=== PATIENT | male | born 1945 | race Caucasian/White ===

== ENCOUNTER 2020-02-16 17:46 | Emergency (ER) | payer MEDICARE ==
--- NOTE | 2020-02-16 18:13 | ED ---
Psychiatric Complaint - HPI Summary HPI Summary: 74 year old M presenting to [facility] accompanied by the police with a chief complaint of concern for COVID-19 since earlier today. The patient rates the pain 0/10 in severity. Symptoms aggravated by nothing. Symptoms alleviated by nothing. Patient reports trying to play "cowboys and Indians" and trying to form an underground army to "fight the war against COVID-19" and that he thinks that he knows more about COVID-19 than others. Per the officer with him the patient is a [place] vet and two days ago was lapsing between being in [place] and being in present-time. The officer denies the patient having suicidal thoughts. The patient reports allergies but there are none listed in his chart. Medication list reviewed. Allergy list reviewed. Home Medications Medication Instructions Recorded Confirmed Type ALPRAZolam TAB* [Xanax TAB*] 0.25 mg PO TID PRN 05/02/14 10/15/15 History Aspirin 81 mg CHEW TAB* [Aspirin 81 mg PO DAILY 05/02/14 10/15/15 History Low Dose TAB*] Atenolol TAB* [Tenormin TAB*] 25 mg PO DAILY 05/02/14 10/15/15 History Cyclobenzaprine TAB* [Flexeril 5 mg PO TID PRN 09/20/14 10/15/15 History TAB*] Misc Natural Products [Saw 1 cap PO DAILY 09/20/14 10/15/15 History [place]] Multiple Vitamins W/ Minerals 1,000 mg PO DAILY 09/20/14 10/15/15 History [Centrum Silver] Albuterol 2.5MG/3ML (0.083%)* 1 puff PO SEE INSTRUCTIONS PRN 10/15/15 10/15/15 History [Ventolin 2.5 MG/3 ML NEB.SUNIL*] Albuterol Sulfate 1 puff PO DAILY 10/15/15 10/15/15 History Ipratropium 0.5MG/2.5ML NEB* 1 neb INH BID 10/15/15 10/15/15 History [Atrovent 0.5 MG NEB.SUNIL*] [place]-3/Dha/Epa/Fish Oil [Fish Oil] 1 tab PO DAILY 10/15/15 10/15/15 History Red Yeast Rice 600 mg PO DAILY 10/15/15 10/15/15 History Turmeric (Curcuma Longa) [Turmeric] 350 mg PO DAILY 10/15/15 10/15/15 History Magnesium Oxide [Essential 250 mg PO 03/19/16 History Magnesium] - History Of Current Complaint Chief Complaint: EDMentalHealth Time Seen by Provider: 02/16/20 17:49 Hx Obtained From: Patient Onset/Duration: Lasting Hours Timing: Constant Severity Currently: None Aggravating Factor(s): Nothing Alleviating Factor(s): Nothing Has Suicidal: Denies: Thoughts - Allergies/Home Medications Allergies/Adverse Reactions: Allergies Allergy/AdvReac Type Severity Reaction Status Date / Time No Known Allergies Allergy Verified 02/16/20 17:56 Home Medications: Home Medications Aspirin 81 mg CHEW TAB* [Aspirin Low Dose TAB*] 81 mg PO DAILY 05/02/14 [ History Confirmed 02/16/20] [place]-3/Dha/Epa/Fish Oil [Fish Oil] 1 tab PO DAILY 10/15/15 [History Confirmed 02/16/20] Red Yeast Rice 600 mg PO DAILY 10/15/15 [History Confirmed 02/16/20] Albuterol 2.5MG/3ML (0.083%)* [Ventolin 2.5 MG/3 ML NEB.SUNIL*] 2.5 mg INH TID PRN 02/16/20 [History Confirmed 02/16/20] Albuterol HFA INHALER* [Ventolin HFA Inhaler*] 1 puff INH Q4H PRN 02/16/20 [ History Confirmed 02/16/20] Atenolol TAB* [Tenormin TAB* 25 MG] 25 mg PO DAILY 02/16/20 [History Confirmed 02/16/20] Lisinopril TAB* [Prinivil TAB*] 10 mg PO DAILY 02/16/20 [History Confirmed 02/15] Magnesium Oxide 250 mg PO DAILY 02/16/20 [History Confirmed 02/16/20] Multivitamin/Iron/Folic Acid [Centrum Adults Tablet] 1 tab PO DAILY 02/16/20 [ History Confirmed 02/16/20] PMH/Surg Hx/FS Hx/Imm Hx Endocrine/Hematology History: Denies: Hx Diabetes, Hx Thyroid Disease Cardiovascular History: Reports: Hx Coronary Artery Disease, Hx Hypercholesterolemia, Hx Hypertension - ON MEDICATION FOR, Hx Myocardial Infarction Denies: Hx Angina, Hx Pacemaker/ICD, Hx Valvular Heart Disease Respiratory History: Reports: Hx Chronic Obstructive Pulmonary Disease (COPD) - wears o2 at hs only at 2.5l Denies: Hx Asthma GI History: Denies: Hx Ulcer Sensory History: Denies: Hx Hearing Aid Psychiatric History: Reports: Hx Panic Disorder - SOMETIMES GETS PANIC ATTACKS - Surgical History Surgery Procedure, Year, and Place: RIGHT ANKLE SURGERY, RIGHT ABDOMINAL HERNIA 2013, COLONOSCOPY X2 POLYPS REMOVED, cardiac cath times two- last one 1-2 yrs ago Infectious Disease History: No Infectious Disease History: Denies: Hx Clostridium Difficile, Hx Hepatitis, Hx Human Immunodeficiency Virus (HIV), Hx of Known/Suspected MRSA, Hx Shingles, Hx Tuberculosis, Hx Known/ Suspected VRE, Hx Known/Suspected VRSA, History Other Infectious Disease, Traveled Outside the US in Last 30 Days - Family History Known Family History: Positive: Hypertension - Social History Alcohol Use: None Substance Use Type: Reports: None Smoking Status (MU): Former Smoker Type: Cigarettes Amount Used/How Often: varies Length of Time of Smoking/Using Tobacco: 50 YRS Have You Smoked in the Last Year: Yes Review of Systems Neurological/Mental Status: Other - Memory lapses Psychological: Other - No suicidal thoughts All Other Systems Reviewed And Are Negative: Yes Physical Exam - Summary Physical Exam Summary: Constitutional: Well-developed, Well-nourished, Alert. (-) Distressed Skin: Warm, Dry HENT: Normocephalic; Atraumatic Eyes: Conjunctiva normal Neck: Musculoskeletal ROM normal neck. (-) JVD, (-) Stridor, (-) Tracheal deviation Cardio: Rhythm regular, rate normal, Heart sounds normal; Intact distal pulses; Radial pulses are 2+ and symmetric. (-) Murmur Pulmonary/Chest wall: Effort normal. (-) Respiratory distress, (-) Wheezes, (-) Rales Abd: Soft, (-) tenderness, (-) Distension, (-) Guarding, (-) Rebound Musculoskeletal: (-) Edema Lymph: (-) Cervical adenopathy Neuro: Alert, Oriented x3 Psych: Pressured, tangential speech. Triage Information Reviewed: Yes Vital Signs On Initial Exam: Initial Vitals Temp Pulse Resp BP Pulse Ox 98.5 F 117 20 156/114 92 02/16/20 17:51 02/16/20 17:51 02/16/20 17:51 02/16/20 17:51 02/16/20 17:51 Vital Signs Reviewed: Yes Procedures - Sedation Patient Received Moderate/Deep Sedation with Procedure: No Diagnostics - Vital Signs Vital Signs Temp Pulse Resp BP Pulse Ox 02/16/20 17:51 98.5 F 117 20 156/114 92 - Laboratory Result Diagrams: 02/16/20 18:32 02/16/20 18:32 Lab Statement: Any lab studies that have been ordered have been reviewed, and results considered in the medical decision making process. Course/Dx - Course Course Of Treatment: Patient was brought in by the police on a 941. Patient has called the police normal times over the past couple of days. Patient is rambling about finding organs coronavirus. At points, per police, patient progressed to finding in the [place] War and cried. Patient denies any suicidal ideation or homicidal ideation. Patient was medically cleared by myself. Patient was evaluated by the psychiatric team and they thought he was safe for outpatient treatment. - Differential Dx/Clinical Impression Provider Diagnosis: Anxiety disorder Discharge ED - Sign-Out/Discharge Documenting (check all that apply): Patient Departure - Discharge - Discharge Plan Condition: Stable Disposition: HOME Referrals: Phillip Dwyer MD [Medical Doctor] - - Billing Disposition and Condition Condition: STABLE Disposition: Home - Attestation Statements Document Initiated by Andreeibe: Yes Documenting Scribe: Marry Murray Provider For Whom Scribe is Documenting (Include Credential): Peter Allison MD Scribe Attestation: Marry Green, scribed for Peter Allison MD on 02/18/20 at 1131. Scribe Documentation Reviewed: Yes Provider Attestation: The documentation as recorded by the Marry martinez accurately reflects the service I personally performed and the decisions made by me, Peter Allison MD Status of Scribe Document: Viewed
[2020-02-16 18:37] LABS: ABS Basophils 0.2 10^3/ul (0-0.2); ABS Eosinophils 0.6 10^3/ul (0-0.6); ABS Lymphocytes 2.2 10^3/ul (1.0-4.8); ABS Monocytes 0.9 10^3/ul (0-0.8); ABS Neutrophils 6.6 10^3/ul (1.5-7.7); Eosinophil % 5.5 %; Hematocrit 44 % (42-52); Hemoglobin 14.9 g/dL (14.0-18.0); Lymphocyte % 21.1 %; Mean Corpuscular HGB Conc 34 g/dL (31-36); Mean Corpuscular Hemoglobin 32 pg (27-31); Mean Corpuscular Volume 96 fL (80-94); Mean Platelet Volume 9.3 fL (7.4-10.4); Nucleated Red Blood Cells % 0.3; Platelet Count 288 10^3/uL (150-450); Red Blood Count 4.63 10^6 /uL (4.18-5.48); Red Cell Distribution Width 17 % (10-15); White Blood Count 10.5 10^3/uL (3.5-10.8)
[2020-02-16 18:54] LABS: ALT 28 U/L (7-52); AST 30 U/L (13-39); Albumin 4.6 g/dL (3.2-5.2); Albumin/Globulin Ratio 1.2 (1-3); Alkaline Phosphatase 73 U/L (34-104); Anion Gap 9 mmol/L (2-11); BUN/Creatinine Ratio 18.9 (8-20); Blood Urea Nitrogen 23 mg/dL (6-24); CO2 Carbon Dioxide 25 mmol/L (22-32); Calcium 9.7 mg/dL (8.6-10.3); Chloride 106 mmol/L (101-111); EGFR African American 70.5 (>60); EGFR Non-African American 58.2 (>60); Globulin 3.7 g/dL (2-4); Glucose 127 mg/dL (70-100); Potassium 4.3 mmol/L (3.5-5.0); Sodium 140 mmol/L (135-145); Total Protein 8.3 g/dL (6.4-8.9)
[2020-02-16 19:00] LABS: Urine Appearance Clear; Urine Bilirubin Negative (Negative); Urine Blood Negative (Negative); Urine Color Amber; Urine Glucose Negative (Negative); Urine Ketones 1+ (Negative); Urine Nitrite Negative (Negative); Urine Protein 1+(30 mg/dL) (Negative); Urine Specific Gravity 1.027 (1.010-1.030); Urine Urobilinogen Negative (Negative)
[2020-02-16 19:03] LABS: Urine Bacteria Absent (Absent); Urine Red Blood Cell Trace(0-2/hpf) (Absent); Urine White Blood Cell Absent (Absent)
[2020-02-16 19:11] LABS: Acetaminophen < 15 mcg/mL; Alcohol < 10 mg/dL (<10); Salicylate < 2.50 mg/dL (<30)
[2020-02-16 19:12] LABS: Urine Benzodiazepine Screen Presumptive Positive (None Detect); Urine Opiates Screen None Detected (None Detect)
[2020-02-16 19:24] LABS: TSH (Thyroid Stimulating Horm) 2.72 mcIU/mL (0.34-5.60)
[2020-02-16 22:04] VITALS: BP 140/95
== END 2020-02-16 22:03 | disposition home or self-care (01) ==
LOC: ED 17:46
DX: F41.9 Anxiety disorder, unspecified (principal); Z87.891 Personal history of nicotine dependence; I25.10 Atherosclerotic heart disease of native coronary artery without angina pectoris; E78.00 Pure hypercholesterolemia, unspecified; I10 Essential (primary) hypertension; I25.2 Old myocardial infarction; J44.9 Chronic obstructive pulmonary disease, unspecified; Z79.82 Long term (current) use of aspirin; Z79.899 Other long term (current) drug therapy
CPT/HCPCS: 36415; 80053; 80307; 80320; 80329; 81003; 81015; 82607; 84443; 85025; 99285; G0480

== ENCOUNTER 2020-02-20 10:48 | Inpatient (IN) | payer MEDICARE ==
--- NOTE | 2020-02-20 13:32 | ED ---
Psychiatric Complaint - HPI Summary HPI Summary: Pt presents to the ED by EMS and [employer] as a 945 after driving erratically, flashing and flagging down [employer]. Pt warning police that "government is failing, war with [place] is coming." Patient was seen 4 days ago for similar. See note below. Today, patient is refusing to talk. When asked certain questions, he will respond with "I cannot ignore a direct order" but will answer his birthday and name. Will not respond to place or time. - History Of Current Complaint Chief Complaint: EDMentalHealth Hx Obtained From: Patient Timing: Constant Severity Initially: Severe Severity Currently: Severe Character: Frustrated Alleviating Factor(s): Nothing Associated Signs And Symptoms: Positive: Negative Related History: Positive For: Prior Psychiatric Issues - Risk Factor(s) Completed Suicide Risk Factors: Male, Age Greater Than 60, White Samoan - Allergies/Home Medications Allergies/Adverse Reactions: Allergies Allergy/AdvReac Type Severity Reaction Status Date / Time No Known Allergies Allergy Verified 02/16/20 17:56 Home Medications: Home Medications Aspirin 81 mg CHEW TAB* [Aspirin Low Dose TAB*] 81 mg PO DAILY 05/02/14 [ History Confirmed 02/20/20] [place]-3/Dha/Epa/Fish Oil [Fish Oil] 1 tab PO DAILY 10/15/15 [History Confirmed 02/20/20] Red Yeast Rice 600 mg PO DAILY 10/15/15 [History Confirmed 02/20/20] Albuterol 2.5MG/3ML (0.083%)* [Ventolin 2.5 MG/3 ML NEB.SUNIL*] 2.5 mg INH TID PRN 02/16/20 [History Confirmed 02/20/20] Albuterol HFA INHALER* [Ventolin HFA Inhaler*] 1 puff INH Q4H PRN 02/16/20 [ History Confirmed 02/20/20] Atenolol TAB* [Tenormin TAB* 25 MG] 25 mg PO DAILY 02/16/20 [History Confirmed 02/20/20] Lisinopril TAB* [Prinivil TAB*] 10 mg PO DAILY 02/16/20 [History Confirmed 02/19] Magnesium Oxide 250 mg PO DAILY 02/16/20 [History Confirmed 02/20/20] Multivitamin/Iron/Folic Acid [Centrum Adults Tablet] 1 tab PO DAILY 02/16/20 [ History Confirmed 02/20/20] PMH/Surg Hx/FS Hx/Imm Hx Previously Healthy: Yes Endocrine/Hematology History: Denies: Hx Diabetes, Hx Thyroid Disease Cardiovascular History: Reports: Hx Coronary Artery Disease, Hx Hypercholesterolemia, Hx Hypertension - ON MEDICATION FOR, Hx Myocardial Infarction Denies: Hx Angina, Hx Pacemaker/ICD, Hx Valvular Heart Disease Respiratory History: Reports: Hx Chronic Obstructive Pulmonary Disease (COPD) - wears o2 at hs only at 2.5l Denies: Hx Asthma GI History: Denies: Hx Ulcer Sensory History: Denies: Hx Hearing Aid Psychiatric History: Reports: Hx Panic Disorder - SOMETIMES GETS PANIC ATTACKS Denies: Hx Eating Disorder, Hx Depression, Hx Post Traumatic Stress Disorder , Hx Schizophrenia, Hx Bipolar Disorder, Hx Suicide Attempt - Surgical History Surgery Procedure, Year, and Place: RIGHT ANKLE SURGERY, RIGHT ABDOMINAL HERNIA 2013, COLONOSCOPY X2 POLYPS REMOVED, cardiac cath times two- last one 1-2 yrs ago - Immunization History Hx Pertussis Vaccination: No Immunizations Up to Date: Yes Infectious Disease History: No Infectious Disease History: Denies: Hx Clostridium Difficile, Hx Hepatitis, Hx Human Immunodeficiency Virus (HIV), Hx of Known/Suspected MRSA, Hx Shingles, Hx Tuberculosis, Hx Known/ Suspected VRE, Hx Known/Suspected VRSA, History Other Infectious Disease, Traveled Outside the US in Last 30 Days - Family History Known Family History: Positive: Hypertension, Other - NONCONTIRBUTORY - Social History Occupation: Unemployed Lives: Alone Alcohol Use: None Alcohol Amount: Hx alcoholism - hasn't drank in 8 years Hx Substance Use: No Substance Use Type: Reports: None Smoking Status (MU): Former Smoker Type: Cigarettes Amount Used/How Often: varies Length of Time of Smoking/Using Tobacco: 50 YRS Have You Smoked in the Last Year: Yes Review of Systems Negative: Fever, Chills, Fatigue, Skin Diaphoresis Negative: Palpitations, Chest Pain Genitourinary: Negative Positive: no symptoms reported, see HPI Negative: Arthralgia, Myalgia Skin: Negative Neurological/Mental Status: Negative Positive: Other - uncooperative - psychosis All Other Systems Reviewed And Are Negative: Yes Physical Exam Triage Information Reviewed: Yes Vital Signs On Initial Exam: Initial Vitals Temp Pulse Resp BP Pulse Ox 0 F 0 0 0/0 0 02/20/20 11:26 02/20/20 11:26 02/20/20 11:26 02/20/20 11:26 02/20/20 11:26 Vital Signs Reviewed: Yes Skin: Positive: Skin Color Reflects Adequate Perfusion Head/Face: Positive: Normal Head/Face Inspection Eyes: Positive: EOMI, BARI, Conjunctiva Clear Neck: Positive: Supple, No Lymphadenopathy Respiratory/Lung Sounds: Positive: Clear to Auscultation, Breath Sounds Present Cardiovascular: Positive: RRR, Pulses are Symmetrical in both Upper and Lower Extremities Musculoskeletal: Positive: Strength/ROM Intact Psychiatric: Positive: Patient Uncooperative for Exam AVPU Assessment: Alert Procedures - Sedation Patient Received Moderate/Deep Sedation with Procedure: No Diagnostics - Vital Signs Vital Signs Temp Pulse Resp BP Pulse Ox 02/20/20 11:26 0 F 0 0 0/0 0 - Laboratory Lab Statement: Any lab studies that have been ordered have been reviewed, and results considered in the medical decision making process. Course/Dx - Course Course Of Treatment: Patient refusing to answer questions. At this point, he appears to have psychosis and recommending placement to facility as patient is a danger to himself and/or others. Per Dr. Cassidy, patient will be involuntarily admitted. - Differential Dx/Clinical Impression Differential Diagnosis/HQI/PQRI: Positive: Acute Psychosis, Bipolar Disorder, Depression, Schizophrenia Provider Diagnosis: Psychosis Discharge ED - Sign-Out/Discharge Documenting (check all that apply): Patient Departure - Discharge Plan Condition: Fair Disposition: ADMITTED TO [facility] Referrals: No Primary Care Phys,NOPCP [Primary Care Provider] - - Billing Disposition and Condition Condition: FAIR Disposition: Admitted to [facility]
[2020-02-20] MEDS ORDERED: Al Hydrox/Mg Hydrox/Simet LIQ* 30 ML UDC PO PRN (13:34)
[2020-02-20] MEDS ORDERED: Albuterol HFA INHALER* 8 gm MDI INH PRN (13:35)
[2020-02-20] MEDS ORDERED: chlorproMAZINE TAB* 100 MG PO PRN (13:37)
[2020-02-20] MEDS ORDERED: Haloperidol TAB* 5 MG ONE (15:03)
[2020-02-20] MEDS ORDERED: diPHENhydraMINE PO* 50 MG ONE (15:03)
[2020-02-20] MEDS ORDERED: LORazepam TAB(*) 1 MG ONE (15:03)
[2020-02-20] MEDS ORDERED: Haloperidol INJ IV/IM* 5 MG/ML AMP ONE (15:39)
[2020-02-20] MEDS ORDERED: diPHENhydraMINE IV* 50 MG/ML 1 ml VIAL (BENADRYL) ONE (15:39)
[2020-02-20] MEDS ORDERED: LORazepam INJ* 2 MG/ML 1 ML VIAL ONE (15:40)
--- NOTE | 2020-02-20 16:07 | PROCNOTE ---
- Assessment for Patient Restraint Face to Face Encounter Date: 02/20/20 Face to Face Encounter Time: 15:50 Evaluation of the Patient's Immediate Situation: Patient refusing to take indicated medications. Also refusing to remove rope band around sweat pants, which constitutes ligature risk. Combative with staff. Patient's Reaction to Intervention: Patient placed in brief, one-minute manual hold while IM meds administered and waistband removed from sweatpants. Patient's Medication and Behavioral Condition: Patient given Haldol 5mg, Benadryl 50mg and Ativan 2mg all via IM with no injuries. Evaluate Need for Continued Restraint: Terminate
[2020-02-21] MEDS ORDERED: Atenolol TAB* 25 MG PO SCH (09:00)
[2020-02-21] MEDS: Aspirin 81 mg CHEW TAB* 81 MG TAB.CHEW PO SCH (09:32)
[2020-02-21] MEDS: Atenolol TAB* 25 MG PO SCH (09:32)
[2020-02-21] MEDS: Lisinopril TAB* 10 MG PO SCH (09:33)
--- NOTE | 2020-02-21 10:34 | HP ---
H&P (Free Text) History and Physical: Justification for admission: Immediate Safety. CC " The chain of command is falling down" The patient was brought to [facility] by state police. He called state police demanding that a chief of police be sent to him. Per collateral report patient was found to be disorganized , paranoid, and delusional. He was stating that there is a war in [place] and that he has information about COVID -19 that no one else has. He was requesting to have police place hazard cones around his truck. He was living out of his truck and stated that it is to much work for him to maintain heating his house with wood so he lives out of his truck. He reported that life is no longer living because the democrats and republicans do not get along. He reported having access to firearms at home. He reported diminished sleep and eats only when food is available. The patient denied homicidal ideation intent or plan. The patient denied auditory and/ or visual hallucinations. He provided permission to speak to his sister Loren who stated that in the last 2 weeks he has sent bizarre texts, becoming paranoid and speaks in terms of a operation. He expressed that he has a message to people that no one else knows and it will solve the the [employer] problems. He wished to not disclose that message until he protects it with a patent. Patient received haldol 5mg, benadryl 50mg and ativan 2mg IM for being combative with staff. Depression He reported feeling depressed with feeling empty inside, feelings of hopelessness , and worthlessness.He has interruption of sleep and loss of energy and lack of motivation to complete tasks. Denied overwhelming feelings of guilt or decreased concentration. He reported thoughts of being better off . Anxiety Denied having symptoms of anxiety such as having times where heart feels that it is beating out of chest , sweaty palms, or shallow breathing. Denied having uncomfortable or intrusive thoughts. He reported feeling restless, high strung, and worrying too much most of the time. Bipolar Denied symptoms of sukumar such as having many ideas at once. Denied increased talkativeness where no one can interrupt. Denied feeling irritable most of the time while having an persistent abundance of energy most of the day without the use of energy drinks, stimulants, or recreational drug use. Denied an increase in intensity in goal directed activities. Denied having the decreased need to sleep for days , having prolonged elevated mood , or feeling on top of the world. Denied impulsive risky sexual encounters. Denied spending money recklessly , going on spending sprees wiping out savings. Denied impulsively traveling out of town or country. Psychosis Does not endorse hearing things that other people do not hear or seeing things other people do not see. Denied feeling that TV is making references. Believes that there is a war with [place], and he has the solution that can solve the problems of the world. Denied feeling that people are spying , following , or reading their thoughts. Phobias: Patient denied having excessive fear of a particular thing or situation. Eating disorders: Patient denied having excessive eating habits or feelings of guilt after eating. Denied repeated episodes of self induced vomiting after eating. PTSD Denied flashbacks, nightmares and avoidance of a prior traumatic event. PAST PSYCHIATRIC HISTORY: Prior Diagnosis : Anxiety History of past Psychiatric Hospitalizations: 1 prior psychiatric admission in 1998 History of past suicide/homicide attempts : Denied past suicide attempts, denied repeated self injurious behavior. Denied history of violence. Outpatient follow-up: PCP Dr. Dwyer, Not currently linked with MD services. Medications: Past trials of medications include xanax 0.25mg daily and according to [facility] was filled once in October 2019 He does not have guardian closest relative is his Sister Loren Sellers who lives in [place] FAMILY HISTORY: - Suicide: Denied family history of suicide. - Mental illness: Denied a history of mental health in immediate family members. - Substance abuse: Denied substance abuse among family members. SUBSTANCE ABUSE HISTORY: - EtOH: Denied recent use. He abused alcohol when he was younger and quit in 1981 - Tobacco: 40 pack year history he quit 1 year ago - Cannabis: Denied - Heroin: Denied - Cocaine: Denied - Substance abuse treatment: Denied past substance abuse treatment SOCIAL HISTORY: - Denied a history of childhood physical and or sexual abuse Born in [place] and raised by both parents. - Living situation: Currently lives alone in [facility] - Employment history: Unemployed and last worked as [employer] in 1999. - Relationship: from his for 25 years and has 1 son Chad who lives in [place] - Legal history: Denied - service history: He did not serve in war but was in the [employer] and was honorably discharge in 1970. PAST MEDICAL HISTORY: HTN, CAD. - Allergies: Denied drug or other allergies. Physical Exam: Please see ED note Mental Status Exam on Admission APPEARANCE : 74 year old male who appears stated age. Patient appears to have poor hygiene and grooming. BEHAVIOR: Cooperative , calm EYE CONTACT: Fair PSYCHOMOTOR ACTIVITY: No psychomotor agitation or retardation. MOVEMENTS: No abnormal movements observed. SPEECH : Normal rate, rhythm, volume and tone. MOOD : "Depressed " AFFECT : Type is depressed Range is restricted Mood Incongruent THOUGHT PROCESS: tangential , loose associations , THOUGHT CONTENT: paranoid delusions PERCEPTION: No current auditory or visual hallucinations. Doesnt appear to be responding to internal cues. No evidence of depersonalization , de-realization, or illusions SUICIDALITY suicidal ideation HOMICIDALITY Denied homicidal ideation, intent or plan. Insight/judgment: Poor insight and judgment ORIENTATION: Oriented to self, location, and time. 3 serial sevens, abstraction intact, 2/3 word recall. Diagnosis on Admission: Major depressive disorder with psychotic features. History of Tobacco use disorder in remission. Assessment: 74 year old with limited psychiatric history presented to the emergency department in a disorganized, paranoid and suicidal and was admitted to the B[facility] at [facility]. Plan #Admit to BSU, Q15 minute observation and constant with oxygen. Start regular diet. Encourage participation in group therapy and psychoeducation #Patient evaluated in ED and was determined by the emergency room Physician to be medically fit for admission to the BSU. # Justification for Admission: For immediate safety per outlined in the [place] Mental Hygiene Code. # The patient requires psychiatric inpatient admission at this time to assure safety, receive treatment and work toward stabilization. # Labs ordered: CBC, CMP, UDS, TSH, HBA1c, TSH, Toxicology screen, Urine analysis, and lipid profile. # Plan to monitor for metabolic changes by weight, HBA1c, glucose, and lipid panel #Ordered EKG given patient has past cardiac history. # Remove access to firearms # Start lexapro 10mg daily # Obtained collateral information from his sister Loren Browninger Emanuel # [phone] # Medicine consult for right leg edema # Collaboration with Insurance Actuary Mary Jane Brar #Goals before discharge include: Psychiatric Stabilization Tentative Discharge: Pending hospital course and response to treatment The risks, benefits, and alternative treatment options were discussed as well as the risks of refusing treatment. After this discussion and an acknowledgement of this understanding was made. A risk/ benefit assessment of treatment was considered and discussed with the patient. When comparing the risks of treatment with the dangers of not receiving treatment, the benefits of treatment outweigh the treatment risks at this time. Risks of allergy, suicidal ideation, behavioral changes, dystonia, rashes, electrolyte imbalances, movement disorders, cardiac conduction changes, serotonin syndrome, metabolic risks and NMS were among some of the risks discussed. Acetaminophen (Tylenol Tab*) 650 mg PO Q4H PRN PRN Reason: for pain; or Temp >101 F Al Hydrox/Mg Hydrox/Simethicone (Maalox Plus*) 30 ml PO Q4H PRN PRN Reason: INDIGESTION Albuterol (Ventolin 2.5 Mg/3 Ml Neb.Gisell*) 2.5 mg INH TID PRN PRN Reason: SHORTNESS OF BREATH Albuterol (Ventolin Hfa Inhaler*) 1 puff INH Q4H PRN PRN Reason: SHORTNESS OF BREATH Aspirin (Aspirin 81 Mg Chew Tab*) 81 mg PO DAILY [facility] Last Admin: 02/21/20 09:32 Dose: 81 mg Atenolol (Tenormin Tab*) 25 mg PO DAILY [facility] Last Admin: 02/21/20 09:32 Dose: 25 mg Escitalopram Oxalate (Lexapro *) 10 mg PO DAILY [facility] Lisinopril (Prinivil Tab*) 10 mg PO DAILY [facility] Last Admin: 02/21/20 09:33 Dose: 10 mg Lorazepam (Ativan Tab(*)) 1 mg PO Q6H PRN PRN Reason: ANXIETY Olanzapine (Zyprexa Tab*) 10 mg PO Q6H PRN PRN Reason: AGITATION
--- NOTE | 2020-02-21 12:34 | PN ---
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 Medicine asked to consult to the BSU for unilateral lower ext swelling VSS-no abnormalitis Labs: Cr 1.2, appears to have CKD stage 2 from chart review. On interview: Pt is pleasant, well and cooperative. He reports no known hx of how long his feet have been swollen for though he thinks a long time. He reports no pain in his blt feet or legs, even with ambulation, he reports no chest pain or pleurisy, he has questions about areas of his skin (notably a small inclusion cyst on his back and some razor burn on his scalp). He has no other issues or complaints. ROS: Denies ROMERO, SOB, CP, GI, , MSK, new fevers, chills, weight gain or loss, endocrine sx. Past Family Hx: As per H&P Past Surgical Hx: As per H&P Past Social Hx: Former tob quit 1 year ago, former ETOH, denies illicit Objective Active Medications: Acetaminophen (Tylenol Tab*) 650 mg PO Q4H PRN PRN Reason: for pain; or Temp >101 F Al Hydrox/Mg Hydrox/Simethicone (Maalox Plus*) 30 ml PO Q4H PRN PRN Reason: INDIGESTION Albuterol (Ventolin 2.5 Mg/3 Ml Neb.Gisell*) 2.5 mg INH TID PRN PRN Reason: SHORTNESS OF BREATH Albuterol (Ventolin Hfa Inhaler*) 1 puff INH Q4H PRN PRN Reason: SHORTNESS OF BREATH Aspirin (Aspirin 81 Mg Chew Tab*) 81 mg PO DAILY [facility] Last Admin: 02/21/20 09:32 Dose: 81 mg Atenolol (Tenormin Tab*) 25 mg PO DAILY [facility] Last Admin: 02/21/20 09:32 Dose: 25 mg Escitalopram Oxalate (Lexapro *) 10 mg PO DAILY [facility] Lisinopril (Prinivil Tab*) 10 mg PO DAILY [facility] Last Admin: 02/21/20 09:33 Dose: 10 mg Lorazepam (Ativan Tab(*)) 1 mg PO Q6H PRN PRN Reason: ANXIETY Olanzapine (Zyprexa Tab*) 10 mg PO Q6H PRN PRN Reason: AGITATION Vital Signs - 8 hr 02/21/20 02/21/20 08:00 11:39 Temperature 99 F Pulse Rate 98 Respiratory 16 15 Rate Blood Pressure 129/68 (mmHg) Oxygen Devices in Use Now: None Appearance: Pleasant cooperative man in NAD Eyes: No Scleral Icterus, PERRLA Ears/Nose/Mouth/Throat: NL Teeth, Lips, Gums Neck: NL Appearance and Movements; NL JVP, Trachea Midline Respiratory: Symmetrical Chest Expansion and Respiratory Effort, Clear to Auscultation Cardiovascular: NL Sounds; No Murmurs; No JVD, RRR Abdominal: NL Sounds; No Tenderness; No Distention, No Hepatosplenomegaly, - - Obese, distended Lymphatic: No Cervical Adenopathy Extremities: - - 2+ pitting edema to blt tops of feet, does not extend to edmonds or calf Skin: - - Chronic venous stasis discolration Neurological: Alert and Oriented x 3 Assess/Plan/Problems-Billing Assessment: 74M with a PMH purported CAD (unclear if intervention), COPD and former tob use (40pck year hx), schizophrenia who presented with paranoia and psychosis. Medicine asked to consult to the BSU for unilateral lower ext swelling, pt has PE notable for chronic venous stasis with no evidence of DVT, cellulitis or acute arterial insufficiency at this time. - Patient Problems (1) Chronic venous stasis dermatitis of both lower extremities Current Visit: Yes Status: Acute Code(s): I87.2 - VENOUS INSUFFICIENCY ( CHRONIC) (PERIPHERAL) SNOMED Code(s): 81839485 Comment: No tenderness and good pulses. Chronic discoloration and pitting edema most c/w venous insuffeciency Recommend JOSE stockings, feet being elevated (I have ordered JOSE) Could consider CHANTEL as outpt in very distant future but he has no claudication or concern for acute PAD. Status and Disposition: For now, no acute medical interventions and medicine will sign off for now. Please don't hesitate to re-consult us for any questions that may arise. Thanks for this consult.
[2020-02-21] MEDS: Escitalopram * 10 MG TAB PO SCH (13:36)
[2020-02-21] MEDS: Albuterol 2.5 MG/3 ML NEB.SOL* (0.083%) INH PRN (14:37)
[2020-02-21] MEDS: LORazepam TAB(*) 1 MG PO PRN (20:34)
[2020-02-22] MEDS: Escitalopram * 10 MG TAB PO SCH (07:52)
[2020-02-22] MEDS: Aspirin 81 mg CHEW TAB* 81 MG TAB.CHEW PO SCH (07:54)
[2020-02-22] MEDS: Atenolol TAB* 25 MG PO SCH (07:55)
[2020-02-22] MEDS: Lisinopril TAB* 10 MG PO SCH (07:56)
--- NOTE | 2020-02-22 09:35 | PN ---
Subjective - Subjective Date of Service: 02/22/20 Service Type: 26693 Hosp care 35 min high complexity Subjective: Nursing Report: Patient mostly in his room, no behavioral incidents. Slept 3-4 hours. He is not attending group activities. CC: "Think" This patient was seen and evaluated today. He showered today. He was seen in his room. He reported that things are missing in the chain of command and requesting that people only do one thing for him and that is to think. Patient reported that he is on a mission and that something is happening that he can not talk about and is requesting to speak to the mmd unit teacher to get it sorted out. He reported having adequate. Per nursing report the patient has been delusional and mostly isolates himself in his room. Patient reported that he is tolerating medications without side effects. Objective - General Observations Appearance: Disheveled Appears Stated Age: Yes Stature: WNL Posture: Tense Eye Contact: Intense Behavior/Activity: Peculiar - Interaction Observations Attitude Towards Examiner: Anxious, Confused, Mistrustful Stated Mood: Irritable, Anxious Affect: Restricted Speech Pattern/Tone: Garbled Thought Process: Loose Associations Perception: Derealization Thought Content: Depressive, Paranoid, Grandiose Thought Process: Lethality: Paranoid Ideation Hallucination Type: Denies Delusion Type: Persecution, Grandeur - Cognitive Function Orientation: A&O x 4 Level of Consciousness: Awake Judgment Within Normal Limits: No - Medication Compliance Cooperative with Inpatient Medication Regimen: Yes - Group Participation Participates in Group Activities: No Assessment - Assessment Merits Inpatient Hospitalization: For Immediate Safety Clinical Impression: 74 year old with limited psychiatric history presented to the emergency department in a disorganized, paranoid and suicidal and was admitted to the BSU at [facility]. Plan - Plan Treatment Plan: Name: IFEOMA SALDIVAR Birthdate: 1945 [id number] #Q15 minute observation and constant with oxygen. # The patient requires psychiatric inpatient admission at this time to assure safety, receive treatment and work toward stabilization. # Plan to monitor for metabolic changes by weight, HBA1c, glucose, and lipid panel #Ordered EKG and reviewed results and no abnormalities found # Remove access to firearms # Continue lexapro 10mg daily #Start seroquel 50mg po qhs # Obtained collateral information from his sister Loren Browninger Emanuel # [phone] # Appreciate evaluation from medical team # Collaboration with Cfo Controller Mary Jane Brar #Goals before discharge include: Psychiatric Stabilization Tentative Discharge: Pending hospital course and response to treatment Continued Medication Management: Continue Outpt Medication Medications: Current Medications Acetaminophen (Tylenol Tab*) 650 mg PO Q4H PRN PRN Reason: for pain; or Temp >101 F Al Hydrox/Mg Hydrox/Simethicone (Maalox Plus*) 30 ml PO Q4H PRN PRN Reason: INDIGESTION Albuterol (Ventolin 2.5 Mg/3 Ml Neb.Gisell*) 2.5 mg INH TID PRN PRN Reason: SHORTNESS OF BREATH Last Admin: 02/21/20 14:37 Dose: 2.5 mg Albuterol (Ventolin Hfa Inhaler*) 1 puff INH Q4H PRN PRN Reason: SHORTNESS OF BREATH Aspirin (Aspirin 81 Mg Chew Tab*) 81 mg PO DAILY [facility] Last Admin: 02/22/20 07:54 Dose: 81 mg Atenolol (Tenormin Tab*) 25 mg PO DAILY [facility] Last Admin: 02/22/20 07:55 Dose: 25 mg Escitalopram Oxalate (Lexapro *) 10 mg PO DAILY [facility] Last Admin: 02/22/20 07:52 Dose: 10 mg Lisinopril (Prinivil Tab*) 10 mg PO DAILY [facility] Last Admin: 02/22/20 07:56 Dose: 10 mg Lorazepam (Ativan Tab(*)) 1 mg PO Q6H PRN PRN Reason: ANXIETY Last Admin: 02/21/20 20:34 Dose: 1 mg Olanzapine (Zyprexa Tab*) 10 mg PO Q6H PRN PRN Reason: AGITATION Quetiapine Fumarate (Seroquel Tab*) 50 mg PO BEDTIME [facility] - Discharge Plan Discharge Plan: Inpatient Hospitalization
[2020-02-22] MEDS: Albuterol 2.5 MG/3 ML NEB.SOL* (0.083%) INH PRN ×2 (11:50→19:31)
[2020-02-22] MEDS: QUEtiapine TAB* 25 MG PO SCH (21:07)
[2020-02-23] MEDS: Albuterol 2.5 MG/3 ML NEB.SOL* (0.083%) INH PRN ×2 (06:39→21:48)
--- NOTE | 2020-02-23 09:52 | PN ---
Subjective - Subjective Date of Service: 02/23/20 Service Type: 72145 Hosp care 35 min high complexity Subjective: Nursing Report: Patient mostly in his room. Patient placed red marker in his pants. Slept 5hrs overnight. CC: "Red means stop This patient was seen and evaluated today in his room. Patient said that red means stop so he put a red marker in his pants, he said the heart and genitalia are the most important organs in the body so he needed to represent that greens means go and red means stop. He reported that he will address the war with [place] once he leaves the hospital. He reported having adequate appetite and sleep. Patient reported that he is tolerating medications without side effects. Objective - General Observations Appearance: Disheveled Appears Stated Age: Yes Stature: WNL Posture: Slumped Eye Contact: Avoidant Behavior/Activity: Peculiar - Interaction Observations Attitude Towards Examiner: Mistrustful Stated Mood: Expansive Affect: Restricted Speech Pattern/Tone: Rambling Thought Process: Loose Associations, Flight of Ideas Perception: Depersonalization Thought Content: Paranoid Thought Process: Lethality: Paranoid Ideation Hallucination Type: Denies Delusion Type: Grandeur - Cognitive Function Orientation: A&O x 4 Level of Consciousness: Awake Insight: Difficulty Acknowledging Presence of Psyciatric Problems - Medication Compliance Cooperative with Inpatient Medication Regimen: Yes - Group Participation Participates in Group Activities: No Assessment - Assessment Merits Inpatient Hospitalization: For Immediate Safety Clinical Impression: 74 year old with limited psychiatric history presented to the emergency department in a disorganized, paranoid and suicidal and was admitted to the BSU at [facility]. Plan - Plan Treatment Plan: Name: IFEOMA SALDIVAR Birthdate: 1945 [id number] #Q15 minute observation and constant with oxygen. # The patient requires psychiatric inpatient admission at this time to assure safety, receive treatment and work toward stabilization. #Ordered EKG and reviewed results and no abnormalities found # Plan to involve family to restrict access to firearms # Continue lexapro 10mg daily #Increase seroquel 100mg po qhs, black box risks were considered given age of the patient, and the benefits of AP treatment outweigh the associated risks at this time. # Obtained collateral information from his sister Loren Brother Emanuel # [phone] # Appreciate evaluation and recommendations from hospitalist # Collaboration with Clay Plant Treater Mary Jane Brar #Goals before discharge include: Psychiatric Stabilization Tentative Discharge: Pending hospital course and response to treatment Continued Medication Management: Continue Outpt Medication Medications: Current Medications Acetaminophen (Tylenol Tab*) 650 mg PO Q4H PRN PRN Reason: for pain; or Temp >101 F Al Hydrox/Mg Hydrox/Simethicone (Maalox Plus*) 30 ml PO Q4H PRN PRN Reason: INDIGESTION Albuterol (Ventolin 2.5 Mg/3 Ml Neb.Gisell*) 2.5 mg INH TID PRN PRN Reason: SHORTNESS OF BREATH Last Admin: 02/23/20 06:39 Dose: 2.5 mg Albuterol (Ventolin Hfa Inhaler*) 1 puff INH Q4H PRN PRN Reason: SHORTNESS OF BREATH Aspirin (Aspirin 81 Mg Chew Tab*) 81 mg PO DAILY [facility] Last Admin: 02/22/20 07:54 Dose: 81 mg Atenolol (Tenormin Tab*) 25 mg PO DAILY [facility] Last Admin: 02/22/20 07:55 Dose: 25 mg Escitalopram Oxalate (Lexapro *) 10 mg PO DAILY [facility] Last Admin: 02/22/20 07:52 Dose: 10 mg Lisinopril (Prinivil Tab*) 10 mg PO DAILY [facility] Last Admin: 02/22/20 07:56 Dose: 10 mg Lorazepam (Ativan Tab(*)) 1 mg PO Q6H PRN PRN Reason: ANXIETY Last Admin: 02/21/20 20:34 Dose: 1 mg Olanzapine (Zyprexa Tab*) 10 mg PO Q6H PRN PRN Reason: AGITATION Quetiapine Fumarate (Seroquel Tab*) 50 mg PO BEDTIME [facility] Last Admin: 02/22/20 21:07 Dose: 50 mg - Discharge Plan Discharge Plan: Inpatient Hospitalization
[2020-02-23] MEDS: Atenolol TAB* 25 MG PO SCH (10:09)
[2020-02-23] MEDS: Aspirin 81 mg CHEW TAB* 81 MG TAB.CHEW PO SCH (10:09)
[2020-02-23] MEDS: Escitalopram * 10 MG TAB PO SCH (10:09)
[2020-02-23] MEDS: Lisinopril TAB* 10 MG PO SCH (10:09)
[2020-02-23] MEDS: QUEtiapine TAB* 25 MG PO SCH (22:06)
[2020-02-24] MEDS: Aspirin 81 mg CHEW TAB* 81 MG TAB.CHEW PO SCH (08:54)
[2020-02-24] MEDS: Lisinopril TAB* 10 MG PO SCH (08:54)
[2020-02-24] MEDS: Atenolol TAB* 25 MG PO SCH (08:54)
[2020-02-24] MEDS: Escitalopram * 10 MG TAB PO SCH (08:54)
--- NOTE | 2020-02-24 11:08 | PN ---
Subjective - Subjective Date of Service: 02/24/20 Service Type: 43148 Hosp care 35 min high complexity Subjective: Nursing Report: Patient was visible on unit, no behavioral incidents. Slept 4 hrs overnight. CC: "I am fine sir" This patient believes he is at war with [place] and plans to deal with that when he leaves the hospital. He was observed walking around the unit. He reported having adequate appetite. Per nursing no behavioral issues or overnight events reported. Patient reported that he is tolerating medications without side effects. Patient declined morning medication. Objective - General Observations Appearance: Disheveled Appears Stated Age: Yes Stature: WNL Posture: Slumped Eye Contact: Average Behavior/Activity: Peculiar, Impulsive - Interaction Observations Attitude Towards Examiner: Confused, Mistrustful Stated Mood: Anxious Affect: Restricted Speech Pattern/Tone: Excessive Thought Process: Disorganized, Loose Associations Perception: WNL Thought Content: Preoccupation/Ruminations, Grandiose Thought Process: Lethality: Paranoid Ideation Hallucination Type: Denies Delusion Type: Grandeur - Cognitive Function Orientation: A&O x 4 Level of Consciousness: Awake Ability to Make Reasonable Decisions: Serverely Impaired - Medication Compliance Cooperative with Inpatient Medication Regimen: Partial - Group Participation Participates in Group Activities: No Assessment - Assessment Merits Inpatient Hospitalization: For Immediate Safety Clinical Impression: 74 year old with limited psychiatric history presented to the emergency department in a disorganized, paranoid and suicidal and was admitted to the BSU at [facility]. Plan - Plan Treatment Plan: Name: IFEOMA SALDIVAR Birthdate: 1945 [id number] #Q15 minute observation and constant with oxygen. # The patient requires psychiatric inpatient admission at this time to assure safety, receive treatment and work toward stabilization. #Ordered EKG and reviewed results and no abnormalities found # Plan to involve family to restrict access to firearms # Continue lexapro 10mg daily #Continue seroquel 100mg po qhs, black box risks were considered given age of the patient, and the benefits of AP treatment outweigh the associated risks at this time. # Obtained collateral information from his sister Loren Browninger Emanuel # [phone] # Safe ACT completed # Appreciate evaluation and recommendations from hospitalist # Collaboration with Seam Sewer Mary Jane Brar #Goals before discharge include: Psychiatric Stabilization Tentative Discharge: Pending hospital course and response to treatment Continued Medication Management: Continue Outpt Medication Medications: Current Medications Acetaminophen (Tylenol Tab*) 650 mg PO Q4H PRN PRN Reason: for pain; or Temp >101 F Al Hydrox/Mg Hydrox/Simethicone (Maalox Plus*) 30 ml PO Q4H PRN PRN Reason: INDIGESTION Albuterol (Ventolin 2.5 Mg/3 Ml Neb.Gisell*) 2.5 mg INH TID PRN PRN Reason: SHORTNESS OF BREATH Last Admin: 02/23/20 21:48 Dose: 2.5 mg Albuterol (Ventolin Hfa Inhaler*) 1 puff INH Q4H PRN PRN Reason: SHORTNESS OF BREATH Aspirin (Aspirin 81 Mg Chew Tab*) 81 mg PO DAILY [facility] Last Admin: 02/24/20 08:54 Dose: 81 mg Atenolol (Tenormin Tab*) 25 mg PO DAILY [facility] Last Admin: 02/24/20 08:54 Dose: Not Given Escitalopram Oxalate (Lexapro *) 10 mg PO DAILY [facility] Last Admin: 02/24/20 08:54 Dose: Not Given Lisinopril (Prinivil Tab*) 10 mg PO DAILY [facility] Last Admin: 02/24/20 08:54 Dose: Not Given Lorazepam (Ativan Tab(*)) 1 mg PO Q6H PRN PRN Reason: ANXIETY Last Admin: 02/21/20 20:34 Dose: 1 mg Olanzapine (Zyprexa Tab*) 10 mg PO Q6H PRN PRN Reason: AGITATION Quetiapine Fumarate (Seroquel Tab*) 50 mg PO BEDTIME [facility] Last Admin: 02/23/20 22:06 Dose: 50 mg - Discharge Plan Discharge Plan: Inpatient Hospitalization
[2020-02-24] MEDS: Acetaminophen TAB* 325 MG PO PRN (14:28)
[2020-02-24] MEDS: Albuterol HFA INHALER* 8 gm MDI INH PRN (20:42)
[2020-02-24] MEDS: QUEtiapine TAB* 100 MG PO SCH (21:09)
[2020-02-25] MEDS: Aspirin 81 mg CHEW TAB* 81 MG TAB.CHEW PO SCH (08:59)
[2020-02-25] MEDS: Atenolol TAB* 25 MG PO SCH (09:04)
[2020-02-25] MEDS: Escitalopram * 10 MG TAB PO SCH (09:04)
[2020-02-25] MEDS: Lisinopril TAB* 10 MG PO SCH (09:04)
[2020-02-25] MEDS: Albuterol HFA INHALER* 8 gm MDI INH PRN ×2 (09:27→21:13)
[2020-02-25] MEDS: Albuterol 2.5 MG/3 ML NEB.SOL* (0.083%) INH PRN (14:11)
--- NOTE | 2020-02-25 15:15 | PN ---
Subjective - Subjective Date of Service: 02/25/20 Service Type: 28819 Hosp care 15 min low complexity Subjective: Ifeoma is seen in weekend coverage for Dr. Manzano. The patient is sitting in the pitt across from the med window, where he is closely monitoring the status of the swinging half-door that enters the nurse's station. All day he has been fixated upon this door, according to staff, and insisting that it be promptly closed by anyone coming or going. He will apparently yell at staff who leave it open. "It's a safety issue. It's meant to keep all of you secure. If that' s the way you all treat a simple door than how the hell are you supposed to be giving people the care they need here?" Ifeoma is refusing all meds, which is concerning, in part because of extremely high BP readings taken with his routine vitals both last night and this morning. The patient is not concerned about this. "My blood pressure is my own business. It's between me and God. If I , I . I'm telling you right now that I don't want to be in this hospital anymore. I don't want to kill myself and I don't want to kill anyone else!" He remains delusional about the [place] virus epidemic, telling me that he is "at war with [place]." Objective - General Observations Appearance: Well Groomed Appears Stated Age: Yes Stature: WNL Posture: WNL Eye Contact: Intense Behavior/Activity: WNL - Interaction Observations Attitude Towards Examiner: Hostile Stated Mood: Irritable Affect: Labile Speech Pattern/Tone: Pressured Thought Process: Disorganized Thought Content: Paranoid, Grandiose Thought Process: Lethality: Paranoid Ideation Hallucination Type: None Delusion Type: Persecution, Grandeur - Cognitive Function Orientation: A&O x 4 Level of Consciousness: Awake Cognition: WNL Estimated Intelligence: Normal Insight: Difficulty Acknowledging Presence of Psyciatric Problems Judgment Within Normal Limits: No Ability to Make Reasonable Decisions: Serverely Impaired - Medication Compliance Cooperative with Inpatient Medication Regimen: No - Group Participation Participates in Group Activities: No Assessment - Assessment Merits Inpatient Hospitalization: For Immediate Safety, For Stabilization Inpatient DSM-V Dx: F33.3 Clinical Impression: 74 year old with limited psychiatric history presented to the emergency department in a disorganized, paranoid and suicidal and was admitted to the BSU at [facility]. BSU: Problem List - Patient Problems (1) Severe recurrent major depressive disorder with psychotic features Current Visit: Yes Status: Acute Priority: High Plan - Plan Treatment Plan: Name: IFEOMA SALDIVAR Birthdate: 1945 [id number] #Q15 minute observation and constant with oxygen. # The patient requires psychiatric inpatient admission at this time to assure safety, receive treatment and work toward stabilization. #Ordered EKG and reviewed results and no abnormalities found # Plan to involve family to restrict access to firearms # Continue lexapro 10mg daily #Continue seroquel 100mg po qhs, black box risks were considered given age of the patient, and the benefits of AP treatment outweigh the associated risks at this time. # Obtained collateral information from his sister Loren Castellanos # [phone] # Safe ACT completed # Appreciate evaluation and recommendations from hospitalist # Collaboration with Sash Installer Mary Jane Brar #Goals before discharge include: Psychiatric Stabilization Tentative Discharge: Pending hospital course and response to treatment Continued Medication Management: Start Medication Medications: Current Medications Acetaminophen (Tylenol Tab*) 650 mg PO Q4H PRN PRN Reason: for pain; or Temp >101 F Last Admin: 02/24/20 14:28 Dose: 650 mg Al Hydrox/Mg Hydrox/Simethicone (Maalox Plus*) 30 ml PO Q4H PRN PRN Reason: INDIGESTION Albuterol (Ventolin 2.5 Mg/3 Ml Neb.Gisell*) 2.5 mg INH TID PRN PRN Reason: SHORTNESS OF BREATH Last Admin: 02/25/20 14:11 Dose: 2.5 mg Albuterol (Ventolin Hfa Inhaler*) 1 puff INH Q4H PRN PRN Reason: SHORTNESS OF BREATH Last Admin: 02/25/20 09:27 Dose: 1 puff Aspirin (Aspirin 81 Mg Chew Tab*) 81 mg PO DAILY [facility] Last Admin: 02/25/20 08:59 Dose: 81 mg Atenolol (Tenormin Tab*) 25 mg PO DAILY [facility] Last Admin: 02/25/20 09:04 Dose: Not Given Escitalopram Oxalate (Lexapro *) 10 mg PO DAILY [facility] Last Admin: 02/25/20 09:04 Dose: Not Given Lisinopril (Prinivil Tab*) 10 mg PO DAILY [facility] Last Admin: 02/25/20 09:04 Dose: Not Given Lorazepam (Ativan Tab(*)) 1 mg PO Q6H PRN PRN Reason: ANXIETY Last Admin: 02/21/20 20:34 Dose: 1 mg Olanzapine (Zyprexa Tab*) 10 mg PO Q6H PRN PRN Reason: AGITATION Quetiapine Fumarate (Seroquel Tab*) 100 mg PO BEDTIME [facility] Last Admin: 02/24/20 21:09 Dose: Not Given - Discharge Plan Discharge Plan: Inpatient Hospitalization
[2020-02-25] MEDS: QUEtiapine TAB* 100 MG PO SCH (22:44)
[2020-02-26] MEDS: Albuterol HFA INHALER* 8 gm MDI INH PRN ×3 (00:44→20:57)
[2020-02-26] MEDS: Aspirin 81 mg CHEW TAB* 81 MG TAB.CHEW PO SCH (08:23)
[2020-02-26] MEDS: Atenolol TAB* 25 MG PO SCH (08:24)
[2020-02-26] MEDS: Escitalopram * 10 MG TAB PO SCH (08:24)
[2020-02-26] MEDS: Lisinopril TAB* 10 MG PO SCH (08:24)
[2020-02-26] MEDS: QUEtiapine TAB* 100 MG PO SCH (21:25)
[2020-02-27] MEDS: Albuterol HFA INHALER* 8 gm MDI INH PRN ×2 (09:10→20:51)
[2020-02-27] MEDS: Aspirin 81 mg CHEW TAB* 81 MG TAB.CHEW PO SCH (09:11)
[2020-02-27] MEDS: Lisinopril TAB* 10 MG PO SCH ×2 (09:13→15:01)
[2020-02-27] MEDS: Atenolol TAB* 25 MG PO SCH ×2 (09:13→15:00)
[2020-02-27] MEDS: Escitalopram * 10 MG TAB PO SCH ×2 (09:13→15:02)
--- NOTE | 2020-02-27 10:45 | PN ---
Subjective - Subjective Date of Service: 02/27/20 Service Type: [id number] Hosp care 35 min high complexity Subjective: Nursing Report: Patient was visible on unit, disorganized behavior, delusional CC: " I am going to rape and kill you" This patient was seen and evaluated today. 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 He said that he has been here for a month and everyone is lying to him. He said that everyone will be fired because no one has been doing things the way he stated they should be done. The patient declined to take his medications and received an emergency IM of zyprexa. Objective - General Observations Appearance: Disheveled Appears Stated Age: Yes Stature: WNL Posture: Tense Eye Contact: Intense Behavior/Activity: Peculiar, Impulsive, Agitated - Interaction Observations Attitude Towards Examiner: Confused, Defensive, Demanding, Mistrustful Attitude Towards Parent/Guardian: Disrespectful Stated Mood: Dysphoric, Elevated, Irritable Affect: Restricted Speech Pattern/Tone: Inappropriate, Rambling Thought Process: Loose Associations Perception: Derealization Thought Content: Paranoid Thought Process: Lethality: Homicidal Ideation, Paranoid Ideation Hallucination Type: Denies Delusion Type: Persecution - Cognitive Function Orientation: A&O x 4 Level of Consciousness: Awake Insight: Difficulty Acknowledging Presence of Psyciatric Problems Judgment Within Normal Limits: No Ability to Make Reasonable Decisions: Serverely Impaired - Medication Compliance Cooperative with Inpatient Medication Regimen: No - Group Participation Participates in Group Activities: No Assessment - Assessment Merits Inpatient Hospitalization: For Immediate Safety Inpatient DSM-V Dx: F33.3 Clinical Impression: 74 year old with limited psychiatric history presented to the emergency department in a disorganized, paranoid and suicidal and was admitted to the BSU at [facility]. Plan - Plan Treatment Plan: Name: IFEOMA SALDIVAR Birthdate: 1945 [id number] #Q15 minute observation and constant with oxygen. # The patient requires psychiatric inpatient admission at this time to assure safety, receive treatment and work toward stabilization. #Ordered EKG and reviewed results and no abnormalities found # Plan to involve family to restrict access to firearms # Continue lexapro 10mg daily #Continue seroquel 200mg po qhs, black box risks were considered given age of the patient, and the benefits of AP treatment outweigh the associated risks at this time. # Obtained collateral information from his sister Loren # TOO paperwork # Brother Emanuel # [phone] # Safe ACT completed # Repeat CMP # Ora sweet syrup to help with medication compliance # Appreciate evaluation and recommendations from hospitalist # Collaboration with Shoe Clerk Mary Jane Brar #Goals before discharge include: Psychiatric Stabilization Tentative Discharge: Pending hospital course and response to treatment Continued Medication Management: Continue Outpt Medication Medications: Current Medications Acetaminophen (Tylenol Tab*) 650 mg PO Q4H PRN PRN Reason: for pain; or Temp >101 F Last Admin: 02/24/20 14:28 Dose: 650 mg Al Hydrox/Mg Hydrox/Simethicone (Maalox Plus*) 30 ml PO Q4H PRN PRN Reason: INDIGESTION Albuterol (Ventolin 2.5 Mg/3 Ml Neb.Gisell*) 2.5 mg INH TID PRN PRN Reason: SHORTNESS OF BREATH Last Admin: 02/25/20 14:11 Dose: 2.5 mg Albuterol (Ventolin Hfa Inhaler*) 1 puff INH Q4H PRN PRN Reason: SHORTNESS OF BREATH Last Admin: 02/27/20 09:10 Dose: 1 puff Aspirin (Aspirin 81 Mg Chew Tab*) 81 mg PO DAILY [facility] Last Admin: 02/27/20 09:11 Dose: 81 mg Atenolol (Tenormin Tab*) 25 mg PO DAILY [facility] Last Admin: 02/27/20 09:13 Dose: Not Given Escitalopram Oxalate (Lexapro *) 10 mg PO DAILY [facility] Last Admin: 02/27/20 09:13 Dose: Not Given Lisinopril (Prinivil Tab*) 10 mg PO DAILY [facility] Last Admin: 02/27/20 09:13 Dose: Not Given Lorazepam (Ativan Tab(*)) 1 mg PO Q6H PRN PRN Reason: ANXIETY Last Admin: 02/21/20 20:34 Dose: 1 mg Olanzapine (Zyprexa Tab*) 10 mg PO Q6H PRN PRN Reason: AGITATION Quetiapine Fumarate (Seroquel Tab*) 100 mg PO BEDTIME [facility] Last Admin: 02/26/20 21:25 Dose: Not Given - Discharge Plan Discharge Plan: Inpatient Hospitalization
[2020-02-27 14:13] LABS: Albumin 4.2 g/dL (3.2-5.2); Albumin/Globulin Ratio 1.4 (1-3); BUN/Creatinine Ratio 20.9 (8-20); Calcium 9.5 mg/dL (8.6-10.3); EGFR African American 75.4 (>60); EGFR Non-African American 62.3 (>60); Globulin 3.1 g/dL (2-4); Total Bilirubin 0.5 mg/dL (0.2-1.0); Total Protein 7.3 g/dL (6.4-8.9)
[2020-02-27] MEDS: QUEtiapine TAB* 100 MG PO SCH (20:49)
[2020-02-27] MEDS: Acetaminophen TAB* 325 MG PO PRN (23:13)
[2020-02-27] MEDS: Albuterol 2.5 MG/3 ML NEB.SOL* (0.083%) INH PRN (23:21)
[2020-02-28] MEDS: Albuterol HFA INHALER* 8 gm MDI INH PRN ×2 (08:51→15:47)
[2020-02-28] MEDS: Aspirin 81 mg CHEW TAB* 81 MG TAB.CHEW PO SCH ×2 (08:52→13:37)
[2020-02-28] MEDS: LORazepam TAB(*) 1 MG PO PRN (10:38)
[2020-02-28] MEDS: OLANzapine TAB* 10 MG PO PRN (10:38)
--- NOTE | 2020-02-28 10:59 | PN ---
Subjective - Subjective Date of Service: 02/28/20 Service Type: [id number] Hosp care 35 min high complexity Subjective: Nursing Report: Patient was visible on unit, no behavioral incidents. . CC: "I am fine" This patient was seen and evaluated today. He reported he feels safe on the unit and is interacting with peers. Patient reported that he is tolerating medications without side effects. He is thinking about if he wants the add the flavor syrup to his medications Objective - General Observations Appearance: Unkempt Appears Stated Age: Yes Stature: WNL Posture: Tense Eye Contact: Intense Behavior/Activity: Peculiar, Impulsive, Agitated - Interaction Observations Attitude Towards Examiner: Anxious, Mistrustful Attitude Towards Parent/Guardian: Demanding Stated Mood: Irritable Affect: Restricted Speech Pattern/Tone: Inappropriate Thought Process: Disorganized, Loose Associations Perception: Derealization Thought Content: Paranoid Thought Process: Lethality: Paranoid Ideation Hallucination Type: Denies Delusion Type: Persecution - Cognitive Function Orientation: A&O x 4 Level of Consciousness: Awake Judgment Within Normal Limits: No Ability to Make Reasonable Decisions: Serverely Impaired - Medication Compliance Cooperative with Inpatient Medication Regimen: Partial - Group Participation Participates in Group Activities: No Assessment - Assessment Merits Inpatient Hospitalization: For Immediate Safety Inpatient DSM-V Dx: F33.3 Clinical Impression: 74 year old with limited psychiatric history presented to the emergency department in a disorganized, paranoid and suicidal and was admitted to the BSU at [facility]. Plan - Plan Treatment Plan: Name: IFEOMA SALDIVAR Birthdate: 1945 [id number] #Q15 minute observation and constant with oxygen. # The patient requires psychiatric inpatient admission at this time to assure safety, receive treatment and work toward stabilization. #Ordered EKG and reviewed results and no abnormalities found # Plan to involve family to restrict access to firearms # Continue lexapro 10mg daily #Continue seroquel 200mg po qhs, black box risks were considered given age of the patient, and the benefits of AP treatment outweigh the associated risks at this time. # Obtained collateral information from his sister Loren # TOO paperwork # Brother Emanuel # [phone] # Safe ACT completed # Repeat CMP # Ora sweet syrup to help with medication compliance # Appreciate evaluation and recommendations from hospitalist # Collaboration with Car Conditioner Mary Jane Brar #Goals before discharge include: Psychiatric Stabilization Tentative Discharge: Pending hospital course and response to treatment Sodium 138 mmol/L (135-145) 02/27/20 13:51 Potassium 4.0 mmol/L (3.5-5.0) 02/27/20 13:51 BUN 24 mg/dL (6-24) 02/27/20 13:51 Creatinine 1.15 mg/dL (0.67-1.17) 02/27/20 13:51 Calcium 9.5 mg/dL (8.6-10.3) 02/27/20 13:51 AST 32 U/L (13-39) 02/27/20 13:51 ALT 46 U/L (7-52) 02/27/20 13:51 Continued Medication Management: Continue Outpt Medication Medications: Current Medications Acetaminophen (Tylenol Tab*) 650 mg PO Q4H PRN PRN Reason: for pain; or Temp >101 F Last Admin: 02/27/20 23:13 Dose: 650 mg Al Hydrox/Mg Hydrox/Simethicone (Maalox Plus*) 30 ml PO Q4H PRN PRN Reason: INDIGESTION Albuterol (Ventolin 2.5 Mg/3 Ml Neb.Gisell*) 2.5 mg INH TID PRN PRN Reason: SHORTNESS OF BREATH Last Admin: 02/27/20 23:21 Dose: 2.5 mg Albuterol (Ventolin Hfa Inhaler*) 1 puff INH Q4H PRN PRN Reason: SHORTNESS OF BREATH Last Admin: 02/28/20 08:51 Dose: 1 puff Aspirin (Aspirin 81 Mg Chew Tab*) 81 mg PO DAILY [facility] Last Admin: 02/27/20 09:11 Dose: 81 mg Atenolol (Tenormin Tab*) 25 mg PO DAILY [facility] Last Admin: 02/27/20 15:00 Dose: 25 mg Escitalopram Oxalate (Lexapro *) 10 mg PO DAILY [facility] Last Admin: 02/27/20 15:02 Dose: 10 mg Lisinopril (Prinivil Tab*) 10 mg PO DAILY [facility] Last Admin: 02/27/20 15:01 Dose: 10 mg Lorazepam (Ativan Tab(*)) 1 mg PO Q6H PRN PRN Reason: ANXIETY Last Admin: 02/28/20 10:38 Dose: 1 mg Olanzapine (Zyprexa Tab*) 10 mg PO Q6H PRN PRN Reason: AGITATION Last Admin: 02/28/20 10:38 Dose: 10 mg Quetiapine Fumarate (Seroquel Tab*) 200 mg PO BEDTIME [facility] Last Admin: 02/27/20 20:49 Dose: 200 mg - Discharge Plan Discharge Plan: Inpatient Hospitalization
[2020-02-28] MEDS: Lisinopril TAB* 10 MG PO SCH (13:37)
[2020-02-28] MEDS: Atenolol TAB* 25 MG PO SCH (13:37)
[2020-02-28] MEDS: Escitalopram * 10 MG TAB PO SCH (13:37)
[2020-02-28] MEDS: Albuterol 2.5 MG/3 ML NEB.SOL* (0.083%) INH PRN (20:57)
[2020-02-28] MEDS: QUEtiapine TAB* 100 MG PO SCH (22:51)
[2020-02-29] MEDS: Aspirin 81 mg CHEW TAB* 81 MG TAB.CHEW PO SCH (07:38)
[2020-02-29] MEDS: Lisinopril TAB* 10 MG PO SCH (07:38)
[2020-02-29] MEDS: Escitalopram * 10 MG TAB PO SCH (07:40)
[2020-02-29] MEDS: Atenolol TAB* 25 MG PO SCH (07:40)
[2020-02-29] MEDS: Albuterol HFA INHALER* 8 gm MDI INH PRN ×2 (08:27→16:45)
--- NOTE | 2020-02-29 11:09 | PN ---
Subjective - Subjective Date of Service: 02/29/20 Service Type: [id number] Hosp care 35 min high complexity Subjective: Nursing Report: Patient was visible on unit, took medications this morning. Slept ~4hrs CC: "Good" This patient was seen and evaluated today. He reported that his plans are to go home and self isolate. He has been interacting with peers on the unit. He reported that he is in agreement with having visiting services and neighbors check up on him. Patient reported feeing that his thoughts were more clear. He reported having adequate appetite. Patient reported that he is tolerating medications without side effects. Objective - General Observations Appearance: Unkempt Appears Stated Age: Yes Stature: WNL Posture: WNL Eye Contact: Average Behavior/Activity: Peculiar - Interaction Observations Attitude Towards Examiner: Cooperative Stated Mood: Expansive Affect: Restricted Speech Pattern/Tone: Appropriate Thought Process: Coherent, Gary Thought Content: Grandiose Hallucination Type: Denies Delusion Type: Persecution - Cognitive Function Orientation: A&O x 4 Level of Consciousness: Awake - Medication Compliance Cooperative with Inpatient Medication Regimen: Yes - Group Participation Participates in Group Activities: No Assessment - Assessment Inpatient DSM-V Dx: F33.3 Clinical Impression: 74 year old with limited psychiatric history presented to the emergency department in a disorganized, paranoid and suicidal and was admitted to the BSU at [facility]. Plan - Plan Treatment Plan: Name: IFEOMA SALDIVAR Birthdate: 1945 [id number] #Q15 minute observation, staff pass and constant when on oxygen # The patient requires psychiatric inpatient admission at this time to assure safety, receive treatment and work toward stabilization. #Ordered EKG and reviewed results and no abnormalities found # Plan to restrict access to firearms # Continue lexapro 10mg daily #Continue seroquel 200mg po qhs, black box risks were considered given age of the patient, and the benefits of AP treatment outweigh the associated risks at this time. # Obtained collateral information from his sister Loren # Retract TOO as patient has become compliant with medications # Brother Emanuel # [phone] # Safe ACT completed # Ora sweet syrup added to help with medication compliance # Appreciate evaluation and recommendations from hospitalist # Patient in agreement to Involve close contact in his discharge plan # Visiting nursing services, set up with [place] services. # Collaboration with Hspt Tutor Mary Jane Brar #Goals before discharge include: Psychiatric Stabilization Tentative Discharge: Thursday Sodium 138 mmol/L (135-145) 02/27/20 13:51 Potassium 4.0 mmol/L (3.5-5.0) 02/27/20 13:51 BUN 24 mg/dL (6-24) 02/27/20 13:51 Creatinine 1.15 mg/dL (0.67-1.17) 02/27/20 13:51 Calcium 9.5 mg/dL (8.6-10.3) 02/27/20 13:51 AST 32 U/L (13-39) 02/27/20 13:51 ALT 46 U/L (7-52) 02/27/20 13:51 Continued Medication Management: Continue Outpt Medication Medications: Current Medications Acetaminophen (Tylenol Tab*) 650 mg PO Q4H PRN PRN Reason: for pain; or Temp >101 F Last Admin: 02/27/20 23:13 Dose: 650 mg Al Hydrox/Mg Hydrox/Simethicone (Maalox Plus*) 30 ml PO Q4H PRN PRN Reason: INDIGESTION Albuterol (Ventolin 2.5 Mg/3 Ml Neb.Gisell*) 2.5 mg INH TID PRN PRN Reason: SHORTNESS OF BREATH Last Admin: 02/28/20 20:57 Dose: 2.5 mg Albuterol (Ventolin Hfa Inhaler*) 1 puff INH Q4H PRN PRN Reason: SHORTNESS OF BREATH Last Admin: 02/29/20 08:27 Dose: 1 puff Aspirin (Aspirin 81 Mg Chew Tab*) 81 mg PO DAILY [facility] Last Admin: 02/29/20 07:38 Dose: 81 mg Atenolol (Tenormin Tab*) 25 mg PO DAILY [facility] Last Admin: 02/29/20 07:40 Dose: 25 mg Escitalopram Oxalate (Lexapro *) 10 mg PO DAILY [facility] Last Admin: 02/29/20 07:40 Dose: 10 mg Lisinopril (Prinivil Tab*) 10 mg PO DAILY [facility] Last Admin: 02/29/20 07:38 Dose: 10 mg Lorazepam (Ativan Tab(*)) 1 mg PO Q6H PRN PRN Reason: ANXIETY Last Admin: 02/28/20 10:38 Dose: 1 mg Olanzapine (Zyprexa Tab*) 10 mg PO Q6H PRN PRN Reason: AGITATION Last Admin: 02/28/20 10:38 Dose: 10 mg Quetiapine Fumarate (Seroquel Tab*) 200 mg PO BEDTIME [facility] Last Admin: 02/28/20 22:51 Dose: 200 mg - Discharge Plan Discharge Plan: Inpatient Hospitalization
[2020-02-29] MEDS: Albuterol 2.5 MG/3 ML NEB.SOL* (0.083%) INH PRN (11:11)
[2020-02-29] MEDS: OLANzapine TAB* 10 MG PO PRN (17:34)
[2020-02-29] MEDS: QUEtiapine TAB* 100 MG PO SCH (20:26)
[2020-03-01] MEDS: Aspirin 81 mg CHEW TAB* 81 MG TAB.CHEW PO SCH (08:46)
[2020-03-01] MEDS: Atenolol TAB* 25 MG PO SCH (08:46)
[2020-03-01] MEDS: Escitalopram * 10 MG TAB PO SCH (08:46)
[2020-03-01] MEDS: Lisinopril TAB* 10 MG PO SCH (08:46)
[2020-03-01] MEDS ORDERED: Mirtazapine TAB* 15 MG PO PRN (10:40)
--- NOTE | 2020-03-01 10:42 | PN ---
Subjective - Subjective Date of Service: 03/01/20 Service Type: [id number] Hosp care 35 min high complexity Subjective: Nursing Report: Patient was visible on unit, Slept ~4 hrs overnight. CC: "Negative Sir" This patient was seen and evaluated today with his social human services assistants. Patient was seen in his room before encounter. He was irritable and would respond to questions in one word responses "Negatory". Patient reported that he is tolerating medications without side effects. His neighbor plans to parts picker his keys today. His family was contacted and recall a incident 4 years ago where they called police to have firearms taken. His sister Loren spoke to him yesterday and noted a improvement from his baseline. Objective - General Observations Appearance: Disheveled Appears Stated Age: Yes Stature: WNL Posture: WNL Eye Contact: Average Behavior/Activity: Peculiar - Interaction Observations Attitude Towards Examiner: Anxious, Mistrustful Attitude Towards Parent/Guardian: Demanding Stated Mood: Irritable Affect: Restricted Speech Pattern/Tone: Normal Volume Thought Process: Impoverished Perception: WNL Thought Content: Paranoid Thought Process: Lethality: Paranoid Ideation Hallucination Type: Denies Delusion Type: Denies - Cognitive Function Orientation: A&O x 4 Level of Consciousness: Awake - Medication Compliance Cooperative with Inpatient Medication Regimen: Yes - Group Participation Participates in Group Activities: No Assessment - Assessment Merits Inpatient Hospitalization: For Immediate Safety Inpatient DSM-V Dx: F33.3 Clinical Impression: 74 year old with limited psychiatric history presented to the emergency department in a disorganized, paranoid and suicidal and was admitted to the BSU at [facility]. Plan - Plan Treatment Plan: Name: IFEOMA SALDIVAR Birthdate: 1945 [id number] #Q15 minute observation, staff pass and constant when on oxygen # The patient requires psychiatric inpatient admission at this time to assure safety, receive treatment and work toward stabilization. #Ordered EKG and reviewed results and no abnormalities found # Plan to restrict access to firearms # Discontinue lexapro 10mg daily #Start remeron 7.5mg qhs #Continue seroquel 200mg po qhs, black box risks were considered given age of the patient, and the benefits of AP treatment outweigh the associated risks at this time. # Obtained collateral information from his sister Loren- Ifeoma has been paranoid for decades and per his sister since being in the hospital has shown signs of improvement from his baseline. # Retract TOO as patient has become compliant with medications # Brother Emanuel # [phone] # Safe ACT completed # Ora sweet syrup added to help with medication compliance # Appreciate evaluation and recommendations from hospitalist # Patient in agreement to Involve close contact in his discharge plan # Visiting nursing services, set up with [place] services, involvement of family and close contacts. # Collaboration with Core Shaper Mary Jane Brar #Goals before discharge include: Psychiatric Stabilization Tentative Discharge: Thursday Sodium 138 mmol/L (135-145) 02/27/20 13:51 Potassium 4.0 mmol/L (3.5-5.0) 02/27/20 13:51 BUN 24 mg/dL (6-24) 02/27/20 13:51 Creatinine 1.15 mg/dL (0.67-1.17) 02/27/20 13:51 Calcium 9.5 mg/dL (8.6-10.3) 02/27/20 13:51 AST 32 U/L (13-39) 02/27/20 13:51 ALT 46 U/L (7-52) 02/27/20 13:51 Continued Medication Management: Continue Outpt Medication Medications: Current Medications Acetaminophen (Tylenol Tab*) 650 mg PO Q4H PRN PRN Reason: for pain; or Temp >101 F Last Admin: 02/27/20 23:13 Dose: 650 mg Al Hydrox/Mg Hydrox/Simethicone (Maalox Plus*) 30 ml PO Q4H PRN PRN Reason: INDIGESTION Albuterol (Ventolin 2.5 Mg/3 Ml Neb.Gisell*) 2.5 mg INH TID PRN PRN Reason: SHORTNESS OF BREATH Last Admin: 02/29/20 11:11 Dose: 2.5 mg Albuterol (Ventolin Hfa Inhaler*) 1 puff INH Q4H PRN PRN Reason: SHORTNESS OF BREATH Last Admin: 02/29/20 16:45 Dose: 1 puff Aspirin (Aspirin 81 Mg Chew Tab*) 81 mg PO DAILY [facility] Last Admin: 03/01/20 08:46 Dose: 81 mg Atenolol (Tenormin Tab*) 25 mg PO DAILY [facility] Last Admin: 03/01/20 08:46 Dose: 25 mg Lisinopril (Prinivil Tab*) 10 mg PO DAILY [facility] Last Admin: 03/01/20 08:46 Dose: 10 mg Lorazepam (Ativan Tab(*)) 1 mg PO Q6H PRN PRN Reason: ANXIETY Last Admin: 02/28/20 10:38 Dose: 1 mg Mirtazapine (Remeron Tab*) 7.5 mg PO BEDTIME PRN PRN Reason: SLEEP Olanzapine (Zyprexa Tab*) 10 mg PO Q6H PRN PRN Reason: AGITATION Last Admin: 02/29/20 17:34 Dose: 10 mg Quetiapine Fumarate (Seroquel Tab*) 200 mg PO BEDTIME [facility] Last Admin: 02/29/20 20:26 Dose: 200 mg - Discharge Plan Discharge Plan: Inpatient Hospitalization
[2020-03-01] MEDS: Albuterol 2.5 MG/3 ML NEB.SOL* (0.083%) INH PRN (12:38)
[2020-03-01] MEDS: Albuterol HFA INHALER* 8 gm MDI INH PRN (13:53)
[2020-03-01] MEDS: QUEtiapine TAB* 100 MG PO SCH (20:24)
[2020-03-02] MEDS: Lisinopril TAB* 10 MG PO SCH (07:53)
[2020-03-02] MEDS: Atenolol TAB* 25 MG PO SCH (07:54)
[2020-03-02] MEDS: Aspirin 81 mg CHEW TAB* 81 MG TAB.CHEW PO SCH (07:54)
--- NOTE | 2020-03-02 12:15 | PN ---
Subjective - Subjective Date of Service: 03/02/20 Service Type: [id number] Hosp care 35 min high complexity Subjective: Nursing Report: Patient visible on unit, no behavioral incidents. Did not sleep much overnight CC: "No sir" This patient was seen and evaluated today. The patients neighbor went to his home and noticed that there was someone living there without the patients consent and police was called and found the place to be inhabitable and did not have running water, food or heat. He reported having adequate appetite. Patient reported that he is tolerating medications without side effects. He went to group this morning. Objective - General Observations Appearance: Disheveled Appears Stated Age: Yes Stature: WNL Posture: Slumped Eye Contact: Avoidant Behavior/Activity: Peculiar, Impulsive, Agitated - Interaction Observations Attitude Towards Examiner: Confused, Defensive, Mistrustful Stated Mood: Irritable Affect: Restricted Speech Pattern/Tone: Appropriate Thought Process: [place] Perception: WNL Thought Content: Paranoid Thought Process: Lethality: Paranoid Ideation Hallucination Type: Denies Delusion Type: Persecution - Cognitive Function Orientation: A&O x 4 Level of Consciousness: Awake Cognition: WNL Insight: WNL - Medication Compliance Cooperative with Inpatient Medication Regimen: Yes - Group Participation Participates in Group Activities: Partial Assessment - Assessment Merits Inpatient Hospitalization: For Immediate Safety Inpatient DSM-V Dx: F33.3 Clinical Impression: 74 year old with limited psychiatric history presented to the emergency department in a disorganized, paranoid and suicidal and was admitted to the BSU at [facility]. Plan - Plan Treatment Plan: Name: IFEOMA SALDIVAR Birthdate: 1945 [id number] #Q15 minute observation, staff pass and constant when on oxygen # The patient requires psychiatric inpatient admission at this time to assure safety, receive treatment and work toward stabilization. #Ordered EKG and reviewed results and no abnormalities found # Plan to restrict access to firearms #Continue remeron 7.5mg qhs #Continue seroquel 200mg po qhs, black box risks were considered given age of the patient, and the benefits of AP treatment outweigh the associated risks at this time. # Obtained collateral information from his sister Dinorah Iyer has been paranoid for decades and per his sister since being in the hospital has shown signs of improvement from his baseline. # APS referral- Patients living conditions are not habitable no running water, food, or heat, SW is planing to look into available group homes. # Brother Emanuel # [phone] # Safe ACT completed # Ora sweet syrup added to help with medication compliance # Appreciate evaluation and recommendations from hospitalist # Patient in agreement to Involve close contact in his discharge plan # Visiting nursing services, set up with [place] services, involvement of family and close contacts. # Collaboration with [place] Operator Mary Jane Brar #Medicine to see patient for lower extremity edema #Goals before discharge include: Psychiatric Stabilization Tentative Discharge: unknown at this time Sodium 138 mmol/L (135-145) 02/27/20 13:51 Potassium 4.0 mmol/L (3.5-5.0) 02/27/20 13:51 BUN 24 mg/dL (6-24) 02/27/20 13:51 Creatinine 1.15 mg/dL (0.67-1.17) 02/27/20 13:51 Calcium 9.5 mg/dL (8.6-10.3) 02/27/20 13:51 AST 32 U/L (13-39) 02/27/20 13:51 ALT 46 U/L (7-52) 02/27/20 13:51 Continued Medication Management: Continue Outpt Medication Medications: Current Medications Acetaminophen (Tylenol Tab*) 650 mg PO Q4H PRN PRN Reason: for pain; or Temp >101 F Last Admin: 02/27/20 23:13 Dose: 650 mg Al Hydrox/Mg Hydrox/Simethicone (Maalox Plus*) 30 ml PO Q4H PRN PRN Reason: INDIGESTION Albuterol (Ventolin 2.5 Mg/3 Ml Neb.Gisell*) 2.5 mg INH TID PRN PRN Reason: SHORTNESS OF BREATH Last Admin: 03/01/20 12:38 Dose: 2.5 mg Albuterol (Ventolin Hfa Inhaler*) 1 puff INH Q4H PRN PRN Reason: SHORTNESS OF BREATH Last Admin: 03/01/20 13:53 Dose: 1 puff Aspirin (Aspirin 81 Mg Chew Tab*) [address] [facility] Last Admin: 03/02/20 07:54 Dose: 81 mg Atenolol (Tenormin Tab*) [address] [facility] Last Admin: 03/02/20 07:54 Dose: 25 mg Lisinopril (Prinivil Tab*) 10 mg PO DAILY [facility] Last Admin: 03/02/20 07:53 Dose: 10 mg Lorazepam (Ativan Tab(*)) 1 mg PO Q6H PRN PRN Reason: ANXIETY Last Admin: 02/28/20 10:38 Dose: 1 mg Mirtazapine (Remeron Tab*) 7.5 mg PO BEDTIME PRN PRN Reason: SLEEP Olanzapine (Zyprexa Tab*) 10 mg PO Q6H PRN PRN Reason: AGITATION Last Admin: 02/29/20 17:34 Dose: 10 mg Quetiapine Fumarate (Seroquel Tab*) 200 mg PO BEDTIME [facility] Last Admin: 03/01/20 20:24 Dose: 200 mg - Discharge Plan Discharge Plan: Inpatient Hospitalization
[2020-03-02] MEDS: Albuterol 2.5 MG/3 ML NEB.SOL* (0.083%) INH PRN ×2 (13:59→19:47)
--- NOTE | 2020-03-02 14:06 | PN ---
Hospitalist Progress Note Date of Service: 03/02/20 Hospitalists asked to re-evaluate patient because his lower extremity edema is persistent. Patient tells me he is short of breath with exertion at baseline due to his COPD , and today it is no worse than his usual. He has had lower extremity edema for quite some time. He denies chest pain, fever/chills, abd pain, difficulty urinating, diarrhea. He has been wearing his nora hose but has not been elevating his legs. RN on BSU tells me he has been ambulating most of the day. Upon review of cardiac cath in 2013, patient had EF 50% and significant hypokinesis of the inferior posterior wall. PE: General: Obese, elderly white male, sitting on edge of bed, appearing comfortable and in NAD ENT: mucous membranes moist Lungs: clear to auscultation throughout; not using accessory muscles with respirations Cardio: RRR without m/r/g Extremities: +2 pitting edema to bilateral LEs pretibially, TEDs in place Neuro: gait wnl, alert and oriented x3, able to move all extremities A&P -patient's LE edema appears related to HFrEF -it seems that this LE edema is a chronc issue, he obviously does not have hypoxia and this is stable -encouraged continuing TEDs and leg elevation -will start lasix 40 mg po daily -patient would likely benefit from outpatient echo after discharge from BSU I will sign off for now. Thank you for involving us in the care of this patient.
[2020-03-02] MEDS: Albuterol HFA INHALER* 8 gm MDI INH PRN (15:57)
[2020-03-02] MEDS: QUEtiapine TAB* 100 MG PO SCH (21:57)
[2020-03-03] MEDS: Albuterol HFA INHALER* 8 gm MDI INH PRN (07:50)
[2020-03-03] MEDS: Aspirin 81 mg CHEW TAB* 81 MG TAB.CHEW PO SCH (09:15)
[2020-03-03] MEDS: Lisinopril TAB* 10 MG PO SCH (09:17)
[2020-03-03] MEDS: Furosemide TAB* 40 MG PO SCH (09:17)
[2020-03-03] MEDS: Atenolol TAB* 25 MG PO SCH (09:17)
[2020-03-03] MEDS: LORazepam TAB(*) 1 MG PO PRN (10:23)
[2020-03-03] MEDS: OLANzapine TAB* 10 MG PO PRN (10:24)
[2020-03-03] MEDS: Albuterol 2.5 MG/3 ML NEB.SOL* (0.083%) INH PRN (16:57)
[2020-03-03] MEDS: QUEtiapine TAB* 100 MG PO SCH (19:03)
[2020-03-04] MEDS: Albuterol HFA INHALER* 8 gm MDI INH PRN ×3 (06:14→14:43)
[2020-03-04] MEDS: Aspirin 81 mg CHEW TAB* 81 MG TAB.CHEW PO SCH (07:17)
[2020-03-04] MEDS: Lisinopril TAB* 10 MG PO SCH (07:17)
[2020-03-04] MEDS: Furosemide TAB* 40 MG PO SCH (07:18)
[2020-03-04] MEDS: Atenolol TAB* 25 MG PO SCH (07:18)
[2020-03-04 08:25] LABS: BUN/Creatinine Ratio 24.5 (8-20); Calcium 8.8 mg/dL (8.6-10.3); EGFR African American 82.9 (>60); EGFR Non-African American 68.5 (>60); Potassium 4.1 mmol/L (3.5-5.0)
[2020-03-04] MEDS: Albuterol 2.5 MG/3 ML NEB.SOL* (0.083%) INH PRN (12:43)
[2020-03-04] MEDS: OLANzapine TAB* 10 MG PO PRN (14:45)
[2020-03-04] MEDS: QUEtiapine TAB* 100 MG PO SCH (20:04)
[2020-03-05] MEDS: Albuterol HFA INHALER* 8 gm MDI INH PRN (06:12)
[2020-03-05] MEDS: Lisinopril TAB* 10 MG PO SCH (10:38)
[2020-03-05] MEDS: Furosemide TAB* 40 MG PO SCH (10:39)
[2020-03-05] MEDS: Aspirin 81 mg CHEW TAB* 81 MG TAB.CHEW PO SCH (10:39)
[2020-03-05] MEDS: Atenolol TAB* 25 MG PO SCH (10:39)
[2020-03-05] MEDS: Albuterol 2.5 MG/3 ML NEB.SOL* (0.083%) INH PRN (11:02)
--- NOTE | 2020-03-05 11:47 | PN ---
Subjective - Subjective Date of Service: 03/05/20 Service Type: [id number] Hosp care 35 min high complexity Subjective: Nursing Report: Patient was visible on unit, slammed door shut. Slept ~ 5 hrs overnight. CC: "I do not want to go to a mcc" This patient was seen and evaluated today. He refused to go to a mcc upon discharge and wishes to return to his place. He said that he can later consider different living options but right now he should halfway in place because of COVID- 19. He is requesting to find out where his car is at. He reported having adequate appetite and slept ~ 5 hrs. Per nursing the patient slammed the nursing door shut. Patient reported that he is tolerating medications without side effects. Objective - General Observations Appearance: Disheveled Appears Stated Age: Yes Stature: WNL Posture: Tense Eye Contact: Intense Behavior/Activity: Peculiar, Impulsive, Agitated - Interaction Observations Attitude Towards Examiner: Demanding, Mistrustful Stated Mood: Irritable Affect: Restricted Speech Pattern/Tone: Normal Volume Thought Process: [place] Perception: WNL Thought Content: Preoccupation/Ruminations, Paranoid Thought Process: Lethality: Paranoid Ideation Hallucination Type: Denies Delusion Type: Denies - Cognitive Function Orientation: A&O x 4 Level of Consciousness: Awake Judgment Within Normal Limits: No - Medication Compliance Cooperative with Inpatient Medication Regimen: Partial - Group Participation Participates in Group Activities: No Assessment - Assessment Merits Inpatient Hospitalization: For Immediate Safety Inpatient DSM-V Dx: F33.3 Clinical Impression: 74 year old with limited psychiatric history presented to the emergency department in a disorganized, paranoid and suicidal and was admitted to the BSU at [facility]. Plan - Plan Treatment Plan: Name: IFEOMA SALDIVAR Birthdate: 1945 [id number] #Q15 minute observation, staff pass and constant when on oxygen # The patient requires psychiatric inpatient admission at this time to assure safety, receive treatment and work toward stabilization. #Ordered EKG and reviewed results and no abnormalities found # Involved family and neighbor to restrict access to firearms #Continue remeron 7.5mg qhs #Continue seroquel 200mg po qhs, black box risks were considered given age of the patient, and the benefits of AP treatment outweigh the associated risks at this time. # Obtained collateral information from his sister Dinorah Ieyr has been paranoid for decades and per his sister since being in the hospital has shown signs of improvement from his baseline. # APS referral- Patients living conditions are not habitable no running water, food, or heat, SW offered other living arrangement options # Patient refused a mcc option and is demanding to return home, his family was unable to offer other options at this time. #Patient understands the risks of refusing other living arrangements, he verbalized his reasons for making a choice and a understanding of his current health conditions and what is needed to take care of himself. # Brother Emanuel # [phone] # Safe ACT completed # Ora sweet syrup added to help with medication compliance # Appreciate evaluation and recommendations from hospitalist # Patient was provided with a Visiting nursing services referral , set up with [place] [facility], and his family and close contacts were contacted. # Collaboration with Electrical Panel Builder Mary Jane Brar #Goals before discharge include: Psychiatric Stabilization Tentative Discharge: unknown at this time Sodium 138 mmol/L (135-145) 02/27/20 13:51 Potassium 4.0 mmol/L (3.5-5.0) 02/27/20 13:51 BUN 24 mg/dL (6-24) 02/27/20 13:51 Creatinine 1.15 mg/dL (0.67-1.17) 02/27/20 13:51 Calcium 9.5 mg/dL (8.6-10.3) 02/27/20 13:51 AST 32 U/L (13-39) 02/27/20 13:51 ALT 46 U/L (7-52) 02/27/20 13:51 Continued Medication Management: Continue Outpt Medication Medications: Current Medications Acetaminophen (Tylenol Tab*) 650 mg PO Q4H PRN PRN Reason: for pain; or Temp >101 F Last Admin: 02/27/20 23:13 Dose: 650 mg Al Hydrox/Mg Hydrox/Simethicone (Maalox Plus*) 30 ml PO Q4H PRN PRN Reason: INDIGESTION Albuterol (Ventolin 2.5 Mg/3 Ml Neb.Gisell*) 2.5 mg INH TID PRN PRN Reason: SHORTNESS OF BREATH Last Admin: 03/05/20 11:02 Dose: 2.5 mg Albuterol (Ventolin Hfa Inhaler*) 1 puff INH Q4H PRN PRN Reason: SHORTNESS OF BREATH Last Admin: 03/05/20 06:12 Dose: 1 puff Aspirin (Aspirin 81 Mg Chew Tab*) 81 mg PO DAILY [facility] Last Admin: 03/05/20 10:39 Dose: 81 mg Atenolol (Tenormin Tab*) 25 mg PO DAILY [facility] Last Admin: 03/05/20 10:39 Dose: 25 mg Furosemide (Lasix Tab*) 40 mg PO DAILY [facility] Last Admin: 03/05/20 10:39 Dose: 40 mg Lisinopril (Prinivil Tab*) 10 mg PO DAILY [facility] Last Admin: 03/05/20 10:38 Dose: 10 mg Mirtazapine (Remeron Tab*) 7.5 mg PO BEDTIME PRN PRN Reason: SLEEP Olanzapine (Zyprexa Tab*) 10 mg PO Q6H PRN PRN Reason: AGITATION Last Admin: 03/04/20 14:45 Dose: 10 mg Quetiapine Fumarate (Seroquel Tab*) 200 mg PO BEDTIME [facility] Last Admin: 03/04/20 20:04 Dose: 200 mg - Discharge Plan Discharge Plan: Inpatient Hospitalization
[2020-03-05] MEDS: OLANzapine TAB* 10 MG PO PRN (15:18)
[2020-03-05] MEDS: LORazepam TAB(*) 1 MG PO PRN (17:01)
[2020-03-05] MEDS: QUEtiapine TAB* 100 MG PO SCH (20:38)
[2020-03-06] MEDS: Albuterol 2.5 MG/3 ML NEB.SOL* (0.083%) INH PRN (04:58)
--- NOTE | 2020-03-06 10:06 | DS ---
Subjective - Subjective Service Types: 19073 [facility] Day Mgmt complex over 30 min Discharge Date: 03/06/20 Subjective: CC: " I am going to get my truck" Patient was discharged on 03/07/20 Patient looks forward to checking on his home and getting back his truck. Patient plans to go to first check on his home and get his truck back and contact [facility] and [facility]. He declined to go directly be referred to [facility] during his course of hospitalization and wished to make sure his home and truck are okay and would determined later if he wanted to move somewhere else. He was provided with information to [facility] and social security. The patient was seen and evaluated before discharge today. The patient reported having adequate appetite and no changes in his sleep. Per nursing no behavioral issues or overnight events reported. Patient reported tolerating medications without side effects. Patient verbalized an understanding of the risks of refusing housing referrals. Justification for admission: Immediate Safety. CC " The chain of command is falling down" The patient was brought to [facility] by state police. He called state police demanding that a [place] mounted police be sent to him. Per collateral report patient was found to be disorganized , paranoid, and delusional. He was stating that there is a war in [place] and that he has information about COVID -19 that no one else has. He was requesting to have police place hazard cones around his truck. He was living out of his truck and stated that it is to much work for him to maintain heating his house with wood so he lives out of his truck. He reported that life is no longer living because the democrats and republicans do not get along. He reported having access to firearms at home. He reported diminished sleep and eats only when food is available. The patient denied homicidal ideation intent or plan. The patient denied auditory and/ or visual hallucinations. He provided permission to speak to his sister Loren who stated that in the last 2 weeks he has sent bizarre texts, becoming paranoid and speaks in terms of a operation. He expressed that he has a message to people that no one else knows and it will solve the the worlds problems. He wished to not disclose that message until he protects it with a patent. Patient received haldol 5mg, benadryl 50mg and ativan 2mg IM for being combative with staff. Depression He reported feeling depressed with feeling empty inside, feelings of hopelessness , and worthlessness.He has interruption of sleep and loss of energy and lack of motivation to complete tasks. Denied overwhelming feelings of guilt or decreased concentration. He reported thoughts of being better off . Anxiety Denied having symptoms of anxiety such as having times where heart feels that it is beating out of chest , sweaty palms, or shallow breathing. Denied having uncomfortable or intrusive thoughts. He reported feeling restless, high strung, and worrying too much most of the time. Bipolar Denied symptoms of sukumar such as having many ideas at once. Denied increased talkativeness where no one can interrupt. Denied feeling irritable most of the time while having an persistent abundance of energy most of the day without the use of energy drinks, stimulants, or recreational drug use. Denied an increase in intensity in goal directed activities. Denied having the decreased need to sleep for days , having prolonged elevated mood , or feeling on top of the world. Denied impulsive risky sexual encounters. Denied spending money recklessly , going on spending sprees wiping out savings. Denied impulsively traveling out of town or country. Psychosis Does not endorse hearing things that other people do not hear or seeing things other people do not see. Denied feeling that TV is making references. Believes that there is a war with [place], and he has the solution that can solve the problems of the world. Denied feeling that people are spying , following , or reading their thoughts. Phobias: Patient denied having excessive fear of a particular thing or situation. Eating disorders: Patient denied having excessive eating habits or feelings of guilt after eating. Denied repeated episodes of self induced vomiting after eating. PTSD Denied flashbacks, nightmares and avoidance of a prior traumatic event. PAST PSYCHIATRIC HISTORY: Prior Diagnosis : Anxiety History of past Psychiatric Hospitalizations: 1 prior psychiatric admission in 1998 History of past suicide/homicide attempts : Denied past suicide attempts, denied repeated self injurious behavior. Denied history of violence. Outpatient follow-up: PCP Dr. Dwyer, Not currently linked with [place] services. Medications: Past trials of medications include xanax 0.25mg daily and according to [employer] TECHNICIAN was filled once in October 2019 He does not have guardian closest relative is his Sister Loren Sellers who lives in [place] FAMILY HISTORY: - Suicide: Denied family history of suicide. - Mental illness: Denied a history of mental health in immediate family members. - Substance abuse: Denied substance abuse among family members. SUBSTANCE ABUSE HISTORY: - EtOH: Denied recent use. He abused alcohol when he was younger and quit in 1981 - Tobacco: 40 pack year history he quit 1 year ago - Cannabis: Denied - Heroin: Denied - Cocaine: Denied - Substance abuse treatment: Denied past substance abuse treatment SOCIAL HISTORY: - Denied a history of childhood physical and or sexual abuse Born in [place] and raised by both parents. - Living situation: Currently lives alone in [facility] - Employment history: Unemployed and last worked as [employer] in 1999. - Relationship: from his for 25 years and has 1 son Chad who lives in [place] - Legal history: Denied - service history: He did not serve in war but was in the [employer] and was honorably discharge in 1970. PAST MEDICAL HISTORY: HTN, CAD. - Allergies: Denied drug or other allergies. Physical Exam: Please see ED note Mental Status Exam on Admission APPEARANCE : 74 year old male who appears stated age. Patient appears to have poor hygiene and grooming. BEHAVIOR: Cooperative , calm EYE CONTACT: Fair PSYCHOMOTOR ACTIVITY: No psychomotor agitation or retardation. MOVEMENTS: No abnormal movements observed. SPEECH : Normal rate, rhythm, volume and tone. MOOD : "Depressed " AFFECT : Type is depressed Range is restricted Mood Incongruent THOUGHT PROCESS: tangential , loose associations , THOUGHT CONTENT: paranoid delusions PERCEPTION: No current auditory or visual hallucinations. Doesnt appear to be responding to internal cues. No evidence of depersonalization , de-realization, or illusions SUICIDALITY suicidal ideation HOMICIDALITY Denied homicidal ideation, intent or plan. Insight/judgment: Poor insight and judgment ORIENTATION: Oriented to self, location, and time. 3 serial sevens, abstraction intact, 2/3 word recall. Diagnosis on Admission: Major depressive disorder with psychotic features. History of Tobacco use disorder in remission. 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 Condition at the time of discharge: At the time of discharge the patient showed improvement of sleep and appetite. The patient was not a danger to self or others. The patient denied suicidal ideation, intent or plan. The patient denied homicidal targets, ideation, intent or plan. This patient participated in psychosocial rehabilitation and gained some insight into problems. The patient gained insight into mental illness, triggers, and treatment. The patient took medication as prescribed. The patient denied side effects of medication and objective signs of side effects were not evident. Therapy Resources were offered to the patient. Patient was given a supply of prescriptions at the time of discharge. The patient plans to attend follow up care with the follow up arrangements that were discussed and put in place. Patient was asked to keep appointments as scheduled, take medication as prescribed, have routine follow up care with their primary care physician and refrain from any use of alcohol or drugs. Objective - General Observations Appearance: Neat Appears Stated Age: Yes Stature: WNL Posture: Slumped Eye Contact: Average Behavior/Activity: WNL - Interaction Observations Attitude Towards Examiner: Cooperative Stated Mood: Euthymic Affect: Restricted Speech Pattern/Tone: Normal Volume Thought Process: Coherent, [place] Perception: WNL Thought Content: WNL Hallucination Type: Denies Delusion Type: Denies - Cognitive Function Orientation: A&O x 4 Level of Consciousness: Awake - Medication Compliance Cooperative with Inpatient Medication Regimen: Partial - Group Participation Participates in Group Activities: No Treatment Course & Assessment Clinical Course & Impression: Hospital course part A: 74 year old with limited psychiatric history presented to the emergency department in a disorganized, paranoid and suicidal and was admitted to the BSU at [facility]. Hospital course part B: Labs ordered included CBC, CMP, UDS, TSH, HBA1c, TSH, Toxicology screen, Urine analysis, and lipid profile. Labs were reviewed and vital signs were monitored during the course of admission. EKG ordered and did not show abnormal QTc prolongation. Patient was on 2 anti-psychotic medications due to 3 failed treatment response with monotherapy. The patient was admitted to the adult behavioral unit and placed on 15 minute check for safety. At a later time the patient was on Q15 minute observation and staff pass privileges. With those limits being extended, the patient was safe on all checks. The patient interacted with other peers on the unit. He did have a incident where he slammed the door and became upset.The patient would have periods of paranoia and rapid mood changes. The patient was set up with [place] services, Visiting home nursing services, health care services. The patient attended some groups. The patient had more regular sleep schedule and a increased appetite. The patient tolerated medication changes without side effects. Group therapy and services were offered. The risks, benefits, and alternative treatment options were discussed as well as of the risks of refusing treatment. Treatment associated risks discussed with the patient. After this discussion the patient made an acknowledgement of this understanding. Follow up care appointments were put in place. HBA1c, glucose, and lipid panel was ordered to monitor metabolic status. Monitoring for metabolic changes was reviewed and it was emphasized to the patient to be continued to be monitored upon discharge. The patient was informed not to abruptly stop or start new medications before consulting with a medical professional. The patient showed Improvements since the time of admission which include: a broader range of affect, regular sleep and a decrease in anxiety, depression, paranoia compared to the baseline that his family outlined. The patient expressed their readiness for discharge. The patient denied suicidal and or homicidal ideation intent or plan. Safety precautions were put in place which included involving the patient and their family to closely monitor for changes in mental state. In addition, implementing follow up care, screening for the need to remove/securing firearms , and stockpile of medications. Patient/ family instructed to immediately call 911 should any safety concerns arise. AIMS was performed and insignificant for involuntary movement disorders. The patient was advised of the 24 hour / 7 days a week availability of the emergency room and to call 911 in the event of an emergency such as being suicidal and/ or homicidal. The patient was informed of the contact information for [facility], Suicide Prevention and Crisis Services, National Suicide Prevention Lifeline, [facility], Alcoholics Anonymous, and [facility]. Medications started included seroquel 200mg qhs for paranoia, remeron 7.5mg qhs for depression and sleep, lexapro was started at 10mg daily and discontinued because remeron was a better fit and better tailored to help with sleep and depression. Family was contacted multiple times before discharge. The family confirmed that the patient has shown improvement from his baseline. They describe his baseline to be somewhat paranoid with rapid mood swings and that this have shown some improvement over the his hospitalization. At this time both the patient and family are eager for discharge and are in agreement with the discharge plan and can receive care in the less restrictive outpatient setting. They were advised on how the days following discharge can be a vulnerable period and to look out for warning signs associated with decompensation and progression of mental illness. Due to COVID concerns the patients family was unable to come stay with the patient or have the patient come to them after discharge and plan to check in on him over phone more often following hospitalization. The family was informed of the patients living conditions. APS was contacted and explained the situation of his living arrangements and determined that the conditions to be okay to be return to. The patient was SAFE ACTED and a safety plan involved the patients neighbors and family to assist in restricting the patients access to firearms. The patients neighbor checked on his place and the police were called and involved after it was discovered that someone was living at his property without his permission. The patient wished not to have his property taken and his neighbor plans to check in on him following discharge. According to the patients family his firearms were removed by police several years ago and since then have no knowledge of him acquiring firearms. Consults included to hospitalist for lower extremity edema and hypertension. The patient was able to carry out activities of daily living. Patient will be discharged to live at home. [facility] Patient informed of follow up appointment times. See more details for follow up care in the discharge plan. Risk factors were mitigated by establishing the patients baseline with close contacts and speaking to his family. Implemented precautionary safety measures by limiting access to stockpiles of medications and firearms, provided mental health treatment, stabilization of psychiatric symptoms, provided resources to outpatient services, as well as provided a supportive care environment and therapy resources during the course of hospitalization. A safety plan was created by the patient and this was reviewed with the patient and treatment team. The patient verbalized the steps they would take to ensure their safety in the event of a crisis or they begin to show signs that they have identified when they are not doing well. Risk factors: Male, , Age, , history of a mental health condition, Chronic health conditions, recent hospitalization. Limited proximity of his support system[place] Per his family and neighbor no knowledge that he has access to firearms. Protective factors: At discharge patient did not have suicidal and or homicidal ideation, intent or plan. No suicide attempts in the last year. Patient has not made a prior suicide attempt. He has children. Has contact with his family. Currently no feelings of hopelessness, no family history of suicide, Doesnt have command hallucinations and or psychotic features at this time. No current substance abuse. No current alcohol abuse. Not an anniversary of a loss of a loved one. The patient is currently future orientated. Patient engaged in treatment and mostly compliant with medication. No barriers to seek mental health treatment. Not incarcerated. No history of self-injurious behavior. The patient did not have a cultural belief that supported suicide. Patient did not experience a loss of someone close that recently by suicide. Modifiable risk factors that were addressed include assessment to lethal means , access to health care and mental health treatment, resources for continuation of care, assessment and treatment of psychiatric symptoms, Current Non- modifiable risk factors include , history of mental illness, extent of support system, age , race , relationship status, [place] Sodium 138 mmol/L (135-145) 03/04/20 07:34 Potassium 4.1 mmol/L (3.5-5.0) 03/04/20 07:34 BUN 26 mg/dL (6-24) H 03/04/20 07:34 Creatinine 1.06 mg/dL (0.67-1.17) 03/04/20 07:34 Calcium 8.8 mg/dL (8.6-10.3) 03/04/20 07:34 AST 32 U/L (13-39) 02/27/20 13:51 ALT 46 U/L (7-52) 02/27/20 13:51 Merits Inpatient Hospitalization: No Clear for Discharge: Adequate Clinical Respons Inpatient DSM-V Dx: F33.3 Discharge Planning - Discharge Planning Discharge Plan: Outpatient Follow Up Outpatient Program: [facility] Recommendations for Continuing Care: Medication Management, Primary Care Followup Medications: Current Medications Acetaminophen (Tylenol Tab*) 650 mg PO Q4H PRN PRN Reason: for pain; or Temp >101 F Last Admin: 02/27/20 23:13 Dose: 650 mg Al Hydrox/Mg Hydrox/Simethicone (Maalox Plus*) 30 ml PO Q4H PRN PRN Reason: INDIGESTION Albuterol (Ventolin 2.5 Mg/3 Ml Neb.Gisell*) 2.5 mg INH TID PRN PRN Reason: SHORTNESS OF BREATH Last Admin: 03/06/20 04:58 Dose: 2.5 mg Albuterol (Ventolin Hfa Inhaler*) 1 puff INH Q4H PRN PRN Reason: SHORTNESS OF BREATH Last Admin: 03/05/20 06:12 Dose: 1 puff Aspirin (Aspirin 81 Mg Chew Tab*) 81 mg PO DAILY [facility] Last Admin: 03/05/20 10:39 Dose: 81 mg Atenolol (Tenormin Tab*) 25 mg PO DAILY [facility] Last Admin: 03/05/20 10:39 Dose: 25 mg Furosemide (Lasix Tab*) 40 mg PO DAILY [facility] Last Admin: 03/05/20 10:39 Dose: 40 mg Lisinopril (Prinivil Tab*) 10 mg PO DAILY [facility] Last Admin: 03/05/20 10:38 Dose: 10 mg Lorazepam (Ativan Tab(*)) 1 mg PO Q6H PRN PRN Reason: ANXIETY Last Admin: 03/05/20 17:01 Dose: 1 mg Mirtazapine (Remeron Tab*) 7.5 mg PO BEDTIME PRN PRN Reason: SLEEP Olanzapine (Zyprexa Tab*) 10 mg PO Q6H PRN PRN Reason: AGITATION Last Admin: 03/05/20 15:18 Dose: 10 mg Quetiapine Fumarate (Seroquel Tab*) 200 mg PO BEDTIME [facility] Last Admin: 03/05/20 20:38 Dose: 200 mg Discharge Planning: Prescriptions provided for discharge [x] Yes [] No Follow up care details as per social work arrangements. Patient response to discharge plan: [x] eager for discharge [] agreeable with discharge plan [] ambivalent about discharge [] disagrees with discharge today
[2020-03-06] MEDS: Furosemide TAB* 40 MG PO SCH ×2 (10:22→11:19)
[2020-03-06] MEDS: Aspirin 81 mg CHEW TAB* 81 MG TAB.CHEW PO SCH ×2 (10:22→11:18)
[2020-03-06] MEDS: Atenolol TAB* 25 MG PO SCH ×2 (10:22→11:19)
[2020-03-06] MEDS: Lisinopril TAB* 10 MG PO SCH ×2 (10:23→11:19)
[2020-03-06] MEDS: QUEtiapine TAB* 100 MG PO SCH ×2 (20:01→23:02)
[2020-03-06] MEDS: Albuterol HFA INHALER* 8 gm MDI INH PRN (22:00)
[2020-03-07] MEDS: LORazepam TAB(*) 1 MG PO PRN (02:59)
[2020-03-07] MEDS: Albuterol HFA INHALER* 8 gm MDI INH PRN (07:04)
[2020-03-07] MEDS: Aspirin 81 mg CHEW TAB* 81 MG TAB.CHEW PO SCH (09:10)
[2020-03-07] MEDS: Furosemide TAB* 40 MG PO SCH (09:10)
[2020-03-07] MEDS: Atenolol TAB* 25 MG PO SCH (09:10)
[2020-03-07] MEDS: Lisinopril TAB* 10 MG PO SCH (09:10)
[2020-03-07 09:15] VITALS: BP 93/58
[2020-03-07] MEDS: Albuterol 2.5 MG/3 ML NEB.SOL* (0.083%) INH PRN (11:24)
== END 2020-03-07 13:00 | disposition home or self-care (01) | DRG 885 ==
LOC: ED 10:48 → BSU 13:34 → ED 14:55
PROVIDERS: ADMIT Psychiatry & Neurology Psychiatry; ATTEND Psychiatry & Neurology Psychiatry
DX: F33.3 Major depressive disorder, recurrent, severe with psychotic symptoms (principal); I13.0 Hypertensive heart and chronic kidney disease with heart failure and stage 1 through stage 4 chronic kidney disease, or unspecified chronic kidney disease; I50.20 Unspecified systolic (congestive) heart failure; N18.2 Chronic kidney disease, stage 2 (mild); F60.0 Paranoid personality disorder; I25.10 Atherosclerotic heart disease of native coronary artery without angina pectoris; I87.2 Venous insufficiency (chronic) (peripheral); J44.9 Chronic obstructive pulmonary disease, unspecified; R60.0 Localized edema; E66.9 Obesity, unspecified; Z87.891 Personal history of nicotine dependence; Z68.33 Body mass index [BMI] 33.0-33.9, adult
CPT/HCPCS: 36415; 80048; 80053; 93005; 94640; 99222; 99231; 99233; 99238; 99284; A9270-GY; J1200; J1630; J2060

== ENCOUNTER 2020-03-12 13:29 | Emergency (ER) | payer MEDICARE ==
[2020-03-12 13:46] VITALS: BP 140/71
--- NOTE | 2020-03-12 14:04 | UC ---
Respiratory Complaint HPI - HPI Summary HPI Summary: 74-year-old male comes in with chief complaint of shortness of breath. Patient has a history of COPD. He reports that he just got discharged from the BSU at [facility] 2 days ago. Reports he does not have all of his usual medications for his COPD at home. Feel short of breath just walking to the bathroom. Does have a cough with some sputum production that he has a hard time getting the sputum out. No fevers measured. He has chronic pedal edema. No complaint of any chest pain. No known Covid exposure. - History of Current Complaint Chief Complaint: UCRespiratory Stated Complaint: SHORTNESS OF BREATH Time Seen by Provider: 03/12/20 13:33 Pain Intensity: 3 Pain Scale Used: 0-10 Numeric - Allergies/Home Medications Allergies/Adverse Reactions: Allergies Allergy/AdvReac Type Severity Reaction Status Date / Time No Known Allergies Allergy Verified 03/12/20 13:46 Home Medications: Home Medications Aspirin 81 mg CHEW TAB* [Aspirin Low Dose TAB*] 81 mg PO DAILY 05/02/14 [ History Confirmed 02/20/20] [place]-3/Dha/Epa/Fish Oil [Fish Oil] 1 tab PO DAILY 10/15/15 [History Confirmed 02/20/20] Albuterol 2.5MG/3ML (0.083%)* [Ventolin 2.5 MG/3 ML NEB.SUNIL*] 2.5 mg INH TID PRN 02/16/20 [History Confirmed 02/20/20] Albuterol HFA INHALER* [Ventolin HFA Inhaler*] 1 puff INH Q4H PRN 02/16/20 [ History Confirmed 02/20/20] Atenolol TAB* [Tenormin TAB* 25 MG] 25 mg PO DAILY 02/16/20 [History Confirmed 02/20/20] Lisinopril TAB* [Prinivil TAB*] 10 mg PO DAILY 02/16/20 [History Confirmed 02/19] Magnesium Oxide 250 mg PO DAILY 02/16/20 [History Confirmed 02/20/20] Multivitamin/Iron/Folic Acid [Centrum Adults Tablet] 1 tab PO DAILY 02/16/20 [ History Confirmed 02/20/20] QUEtiapine TAB* [Seroquel 100 MG *] 200 mg PO BEDTIME #30 tab 03/06/20 [Rx] Furosemide 40 mg PO DAILY #30 tablet 03/07/20 [Rx] Mirtazapine 7.5 mg PO BEDTIME #30 tablet 03/07/20 [Rx] PMH/Surg Hx/FS Hx/Imm Hx Previously Healthy: Yes Endocrine History: Dyslipidemia Cardiovascular History: Hypertension Respiratory History: COPD Other Psychological History: paranoid personality - Surgical History Surgical History: Yes Surgery Procedure, Year, and Place: RIGHT ANKLE SURGERY, RIGHT ABDOMINAL HERNIA 2013, COLONOSCOPY X2 POLYPS REMOVED, cardiac cath times two- last one 1-2 yrs ago - Family History Known Family History: Positive: Hypertension, Other - NONCONTIRBUTORY - Social History Alcohol Use: None Alcohol Amount: Hx alcoholism - hasn't drank in 8 years Substance Use Type: None Smoking Status (MU): Former Smoker Type: Cigarettes Amount Used/How Often: varies Length of Time of Smoking/Using Tobacco: 50 YRS Have You Smoked in the Last Year: Yes Household Exposure Type: Cigarettes - Immunization History Most Recent Influenza Vaccination: unknown Most Recent Pneumonia Vaccination: unknown Review of Systems All Other Systems Reviewed And Are Negative: Yes Constitutional: Positive: Other - see hpi Skin: Positive: Negative Eyes: Positive: Negative ENT: Positive: Negative Respiratory: Positive: Shortness Of Breath, Cough, Other - see hpi Cardiovascular: Positive: Negative Gastrointestinal: Positive: Negative Motor: Positive: Negative Neurovascular: Positive: Negative Musculoskeletal: Positive: Edema Neurological/Mental Status: Positive: Negative Psychological: Positive: Negative Is Patient Immunocompromised?: No Physical Exam Triage Information Reviewed: Yes Appearance: No Pain Distress, Well-Nourished, Other: - Mild shortness of breath Vital Signs: Initial Vital Signs Temp 98.0 F 03/12/20 13:43 Pulse 102 03/12/20 13:43 Resp 24 03/12/20 13:43 BP 140/71 03/12/20 13:43 Pulse Ox 92 03/12/20 13:43 Vital Signs Reviewed: Yes Eye Exam: Normal Eyes: Positive: Conjunctiva Clear Neck: Positive: Supple Respiratory: Positive: Other: - Decreased breath sounds bilaterally. Cardiovascular: Positive: RRR Musculoskeletal: Positive: Strength Intact, Edema @ - Bilateral pedal edema Neurological: Positive: Alert Psychological: Positive: Age Appropriate Behavior Skin Exam: Normal Respiratory Course/Dx - Course Course Of Treatment: Patient's O2 sat is 87% on room air. With 3 L nasal cannula does go up to 97%. Due to the patient's shortness of breath the need for oxygen patient was transported to the emergency department by ambulance. - Differential Dx/Diagnosis Provider Diagnosis: Hypoxia Discharge ED - Sign-Out/Discharge Documenting (check all that apply): Patient Departure All imaging exams completed and their final reports reviewed: No Studies - Discharge Plan Condition: Guarded Disposition: ADMITTED TO [facility] Referrals: No Primary Care Phys,NOPCP [Primary Care Provider] - - Billing Disposition and Condition Condition: GUARDED Disposition: Admitted to [facility]
== END 2020-03-12 13:57 | disposition short-term general hospital (02) ==
LOC: UCEAST 13:29
DX: R09.02 Hypoxemia (principal); R60.0 Localized edema; J44.9 Chronic obstructive pulmonary disease, unspecified; I10 Essential (primary) hypertension; Z79.82 Long term (current) use of aspirin; Z79.899 Other long term (current) drug therapy; Z87.891 Personal history of nicotine dependence
CPT/HCPCS: 99213; G0463

== ENCOUNTER 2020-03-12 14:15 | Inpatient (IN) | payer MEDICARE, OTHER ==
--- NOTE | 2020-03-12 14:21 | ED ---
Shortness of Breath - HPI Summary HPI Summary: 74 y/o M with hx COPD and recent d/c from [facility] brought in by EMS from [facility] c/o worsening SOB and cough over the past couple days. Patient tried Proair at home with little results. Went to [facility] this morning where his O2 sat was 87% on room air. He was placed on nasal cannula oxygen, improved , then was sent here. He additionally c/o BLE swelling. He has never had cardiac issues. No fever, n/v/d. Symptoms aggravated by nothing. Symptoms alleviated by nothing. Medications reviewed. Allergies noted. He is allergic to a steroid. No ETOH, recreational drug, tobacco use. - History of Current Complaint Time Seen by Provider: 03/12/20 14:16 Hx Obtained From: Patient Onset/Duration: Lasting Days, Still Present Aggravating Factors: Nothing Alleviating Factors: Nothing - Allergy/Home Medications Allergies/Adverse Reactions: Allergies Allergy/AdvReac Type Severity Reaction Status Date / Time No Known Allergies Allergy Verified 03/12/20 13:46 Home Medications: Home Medications Aspirin 81 mg CHEW TAB* [Aspirin Low Dose TAB*] 81 mg PO DAILY 05/02/14 [ History Confirmed 03/12/20] Albuterol HFA INHALER* [Ventolin HFA Inhaler*] 1 puff INH Q4H PRN 02/16/20 [ History Confirmed 03/12/20] Atenolol TAB* [Tenormin TAB* 25 MG] 25 mg PO DAILY 02/16/20 [History Confirmed 03/12/20] Lisinopril TAB* [Prinivil TAB*] 10 mg PO DAILY 02/16/20 [History Confirmed 03/12] QUEtiapine TAB* [Seroquel 100 MG *] 200 mg PO BEDTIME #30 tab 03/06/20 [Rx Confirmed 03/12/20] Furosemide 40 mg PO DAILY #30 tablet 03/07/20 [Rx Confirmed 03/12/20] Mirtazapine 7.5 mg PO BEDTIME #30 tablet 03/07/20 [Rx Confirmed 03/12/20] PMH/Surg Hx/FS Hx/Imm Hx Endocrine/Hematology History: Denies: Hx Diabetes, Hx Thyroid Disease Cardiovascular History: Reports: Hx Coronary Artery Disease, Hx Hypercholesterolemia, Hx Hypertension - ON MEDICATION FOR, Hx Myocardial Infarction Denies: Hx Angina, Hx Pacemaker/ICD Respiratory History: Reports: Hx Chronic Obstructive Pulmonary Disease (COPD) - wears o2 at hs only at 2.5l Denies: Hx Asthma Musculoskeletal History: Denies: Hx Arthritis, Hx Back Problems, Hx Bursitis, Hx Congenital Bone Abnormalities, Hx Fibromyalgia, Hx Gout, Hx Orthopedic Injury Sensory History: Reports: Hx Contacts or Glasses Opthamlomology History: Reports: Hx Contacts or Glasses Psychiatric History: Reports: Hx Panic Disorder - SOMETIMES GETS PANIC ATTACKS, Hx Substance Abuse - ETOH Denies: Hx Eating Disorder, Hx Depression, Hx Post Traumatic Stress Disorder , Hx Schizophrenia, Hx Bipolar Disorder, Hx Suicide Attempt - Surgical History Surgery Procedure, Year, and Place: RIGHT ANKLE SURGERY, RIGHT ABDOMINAL HERNIA 2013, COLONOSCOPY X2 POLYPS REMOVED, cardiac cath times two- last one 1-2 yrs ago Infectious Disease History: Denies: Hx Clostridium Difficile, Hx Hepatitis, Hx Human Immunodeficiency Virus (HIV), Hx of Known/Suspected MRSA, Hx Shingles, Hx Tuberculosis, Hx Known/ Suspected VRE, Hx Known/Suspected VRSA, History Other Infectious Disease - Family History Known Family History: Positive: Hypertension - Social History Alcohol Use: None Alcohol Amount: Hx alcoholism Hx Substance Use: No Substance Use Type: Reports: None Hx Tobacco Use: Yes Smoking Status (MU): Former Smoker Type: Cigarettes Amount Used/How Often: varies Length of Time of Smoking/Using Tobacco: 50 YRS Have You Smoked in the Last Year: Yes Review of Systems Negative: Fever Positive: Shortness Of Breath, Cough Negative: Vomiting, Diarrhea, Nausea Positive: Edema - BLE All Other Systems Reviewed And Are Negative: Yes Physical Exam - Summary Physical Exam Summary: Constitutional: Well-developed, Well-nourished, Alert. (-) Distressed Skin: Warm, Dry HENT: Normocephalic; Atraumatic Eyes: Conjunctiva normal Neck: Musculoskeletal ROM normal neck. (-) JVD, (-) Stridor, (-) Tracheal deviation Cardio: Rhythm regular, rate normal, Heart sounds normal; Intact distal pulses; Radial pulses are 2+ and symmetric. (-) Murmur Pulmonary/Chest wall: He is speaking full sentences. He has prominent expiratory wheezing in lower lung guzman and mild decreased air exchange bilaterally Abd: Soft, (-) tenderness, (-) Distension, (-) Guarding, (-) Rebound Musculoskeletal: 2+ pitting edema of BLE bilaterally Lymph: (-) Cervical adenopathy Neuro: Alert, Oriented x3 Psych: Mood and affect Normal Triage Information Reviewed: Yes Vital Signs Reviewed: Yes Procedures - Sedation Patient Received Moderate/Deep Sedation with Procedure: No Diagnostics - Laboratory Result Diagrams: 03/12/20 14:55 03/12/20 14:55 Lab Statement: Any lab studies that have been ordered have been reviewed, and results considered in the medical decision making process. - Radiology CXR Radiology Interpretation Completed By: Radiologist - IMPRESSION: PATCHY AIRSPACE DISEASE INVOLVING RIGHT MID AND LOWER LUNG GUZMAN. ED physician has reviewed this report. - CT Chest/Thorax CTA CT Interpretation Completed By: Radiologist - IMPRESSION: No pulmonary embolus is noted. No aortic dissection is noted. Small right pleural effusion is noted. Small prevascular space lymph nodes and right hilar lymph nodes are noted. ED physician has reviewed this report. - EKG 1507 Cardiac Rate: NL - 88 BPM EKG Rhythm: Sinus Rhythm EKG Comparison: No Significant Change - 02/21/2020 Summary of EKG Findings: Sinus rhythm [address] flattening in lead 3. Unchanged from 02/21/20. ED physician has reviewed and interpreted this EKG. Re-Evaluation - Re-Evaluation First Eval Re-Evaluation Time: 15:34 - Aware of troponin 0.03 Course/Dx - Course Course Of Treatment: Patient's uric worsening cough and shortness of breath. Patient was seen at [facility] where he was 87% on room air. Patient was wheezing in all lung guzman upon arrival and was given a DuoNeb with improvement in his symptoms. Patient had a chest x-ray performed which is grossly unremarkable. Patient had her perform showed an elevated troponin of 0.03 and an elevated BNP. Patient does have peripheral edema but no pulmonary edema. Given patient's shortness of breath, hypoxemia, elevated troponin, patient was evaluated for PE with a negative CTA. Patient did not receive steroids as he had about a reaction to them in the past. Patient was tested for Covid 19. Given patient's elevated troponin and shortness of breath, patient was admitted to the hospital - Diagnoses Provider Diagnoses: Shortness of breath, Hypoxemia, Elevated troponin, Elevated brain natriuretic peptide (BNP) level, COPD (chronic obstructive pulmonary disease), Peripheral edema - Physician Notifications Discussed Care of Patient With: Paul De Paz - Agrees to admit Time Discussed With Above Provider: 16:50 Discharge ED - Sign-Out/Discharge Documenting (check all that apply): Patient Departure - Discharge Plan Condition: Stable Disposition: ADMITTED TO [facility] Forms: COVID-19 Tested & Isolation Referrals: [facility] [Outside] Additional Instructions: You were seen in the emergency department for coronavirus rule out. The department of health will contact you within 24 hours. Due to the pandemic, you should stay in your house and self quarantine. See the separate quarantine paper for further instructions. You should wear a mask if you're outside of your personal room. We encourage handwashing as well as limited contact with other people including the elderly and the immunocompromised. If any studies were not completed at the time of discharge, you will be called with the relevant results. Return to emergency department for severe trouble breathing, worsening or concerning symptoms. It was a pleasure taking care of you today. - Billing Disposition and Condition Condition: STABLE Disposition: Admitted to [facility] - Attestation Statements Document Initiated by Jeff: Yes Documenting Scribe: Ligia Marrufo Provider For Whom Jeff is Documenting (Include Credential): Peter Allison MD Scribe Attestation: ILigia, scribed for Peter Allison MD on 03/12/20 at 1756. Scribe Documentation Reviewed: Yes Provider Attestation: The documentation as recorded by the Ligia martinez accurately reflects the service I personally performed and the decisions made by me, Peter Allison MD Status of Scribe Document: Viewed
[2020-03-12] MEDS ORDERED: Albuterol/Ipratropium NEB.SOL* Albuterol 2.5 MG/Ipratropium 0.5 MG 3 ML INH ONE (14:29)
[2020-03-12 15:10] LABS: ABS Basophils 0.1 10^3/ul (0-0.2); ABS Eosinophils 0.4 10^3/ul (0-0.6); ABS Lymphocytes 1.3 10^3/ul (1.0-4.8); ABS Monocytes 0.7 10^3/ul (0-0.8); ABS Neutrophils 10.5 10^3/ul (1.5-7.7); Eosinophil % 3.2 %; Hematocrit 40 % (42-52); Hemoglobin 13.2 g/dL (14.0-18.0); Lymphocyte % 10.2 %; Mean Corpuscular HGB Conc 33 g/dL (31-36); Mean Corpuscular Hemoglobin 32 pg (27-31); Mean Corpuscular Volume 97 fL (80-94); Mean Platelet Volume 8.6 fL (7.4-10.4); Nucleated Red Blood Cells % 0.1; Platelet Count 270 10^3/uL (150-450); Red Blood Count 4.09 10^6 /uL (4.18-5.48); Red Cell Distribution Width 17 % (10-15)
[2020-03-12 15:33] LABS: Troponin I 0.03 ng/mL (<0.03)
[2020-03-12 16:00] LABS: ALT 78 U/L (7-52); AST 43 U/L (13-39); Albumin 4.1 g/dL (3.2-5.2); Albumin/Globulin Ratio 1.3 (1-3); Alkaline Phosphatase 89 U/L (34-104); Anion Gap 5 mmol/L (2-11); BUN/Creatinine Ratio 16.1 (8-20); Blood Urea Nitrogen 15 mg/dL (6-24); CO2 Carbon Dioxide 30 mmol/L (22-32); Calcium 8.6 mg/dL (8.6-10.3); Chloride 108 mmol/L (101-111); EGFR African American 96.4 (>60); EGFR Non-African American 79.6 (>60); Globulin 3.2 g/dL (2-4); Glucose 109 mg/dL (70-100); Potassium 4.8 mmol/L (3.5-5.0); Sodium 143 mmol/L (135-145); Total Protein 7.3 g/dL (6.4-8.9)
[2020-03-12] MEDS ORDERED: Iodixanol* (CONTRAST) 320 MG/ML 100 ML SDV IV ONE (16:02)
[2020-03-12] MEDS ORDERED: NS 0.9% 1000 ML** 1,000 ML IV ONE (17:34)
[2020-03-12] MEDS ORDERED: cefTRIAXone(*) 1 GM in NS 0.9% 50 ML* 50 ML IVPB SCH (17:36)
[2020-03-12] MEDS ORDERED: Albuterol HFA INHALER* 8 gm MDI INH PRN (17:41)
[2020-03-12] MEDS ORDERED: Acetaminophen TAB* 325 MG PO PRN (18:39)
[2020-03-12] MEDS ORDERED: PROCHLORPERAZINE INJ 5 MG/ML 2 ML VIAL IV PRN (18:43)
[2020-03-12] MEDS: Azithromycin 500 mg/250 ml NS 500 MG/250 ML BAG IVPB SCH (18:57)
[2020-03-12] MEDS: Enoxaparin(*) 40 MG/0.4 ML SYR SUBCUT SCH (20:49)
[2020-03-12] MEDS: QUEtiapine TAB* 100 MG PO SCH (21:10)
[2020-03-12] MEDS: Mirtazapine TAB* 15 MG PO SCH (21:10)
--- NOTE | 2020-03-12 21:39 | HP ---
ADMISSION HISTORY AND PHYSICAL: DATE OF ADMISSION: 03/12/20 PRIMARY CARE PHYSICIAN: None. PROVIDER: Desirae Fajardo NP ATTENDING PHYSICIAN: Dr. De Paz* (dictated by Desirae Fajardo NP). CHIEF COMPLAINT: Shortness of breath and cough. HISTORY OF PRESENT ILLNESS: This is a 74-year-old male with a past medical history significant for COPD, hypertension, coronary artery disease, and paranoid personality disorder who came to the emergency room on 03/12/20 after 2 -day history of increased shortness of breath and cough. Of note, the patient was admitted in to the behavioral services unit for paranoid personality disorder from 02/20/20 through 03/07/20 and he stated that during this time, there was a woman in the unit who had had a "deep hacking cough" and he was in close proximity with her for an extended period of time and then he stated he started having a similar type of cough about 2 days ago. He denies any recent fevers, chills, chest pain, palpitations, abdominal pain, nausea, vomiting. He stated that a number of years ago, he had been diagnosed with COPD and had been on home O2, but he states that he is a very private person, does not like having strangers come to his house and had not allowed [facility] to service the oxygen concentrator that he has at home, and so therefore he has been dealing with shortness of breath with exertion for several years and has an albuterol inhaler that he uses as needed; however, the past couple of days, the inhaler has failed to help to ease his shortness of breath. He also describes having swollen ankles for the past 3 years that he had tried to bring to the attention of his previous PCP, Dr. Dwyer but felt that he never got any satisfactory answers. In the emergency room, labs were drawn. Chest x-ray was performed as well as a chest thorax CTA and electrocardiogram. He received a liter of IV fluids as well as azithromycin and ceftriaxone and 1 nebulizer treatment. Due to his worsening respiratory symptoms, he was also swabbed for COVID. The hospitalists were asked to evaluate the patient for admission. PAST MEDICAL HISTORY: 1. COPD. 2. Anxiety. 3. Hypertension. 4. Coronary artery disease. 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 PAST SURGICAL HISTORY: None. ALLERGIES: None. FAMILY HISTORY: Noncontributory. SOCIAL HISTORY: He has a 40-pack year history, quit 1 year ago. He denies any illicit substance use. He used to abuse alcohol when he was younger, but quit in 1981. REVIEW OF SYSTEMS: A 12-point system review was performed, which was positive for worsening cough with sputum production, increased shortness of breath, bilateral ankle swelling, difficulty with urinating with the difficulty being weak stream and never feeling like he is fully emptying his bladder. Denies any burning or other discomfort. He is negative for fever, chills, anorexia, chest pain, nausea, vomiting, abdominal pain, hematuria, focal weakness, or sensory loss, visual complaints or dysphagia. PHYSICAL EXAMINATION GENERAL: This is a well-developed, chronically ill-appearing older gentleman, seen sitting up in the stretcher, in no acute distress. VITAL SIGNS: 98.9 Fahrenheit, 92 pulse, 27 respirations, 98% oxygen on 2 L, 158 /90 blood pressure. HEENT: Eyes: Conjunctive pink and moist. PERRLA. EOMs intact. Arcus senilis noted in bilateral eyes. Oropharynx is clear. Mucous membranes are slightly dry. NECK: Supple. LUNGS: Noted inspiratory and expiratory wheezes throughout all lung mercer with no crackles auscultated. No accessory muscle use noted on 2 L of oxygen via nasal cannula. CARDIAC: S1, S2 present. Heart rate regular. No murmurs, gallops, or rubs appreciated. ABDOMEN: Soft, nontender, nondistended with positive bowel sounds x4. MUSCULOSKELETAL: No clubbing or cyanosis of the digits. He has 2+ nonpitting edema to bilateral lower extremities, left leg slightly more edematous than the right and both legs are pink, but blanching. SKIN: There are no rashes or open areas appreciated. NEURO: Sensation is intact to light touch. Again, no focal deficits appreciated. PSYCH: He is alert and oriented x3. Thought content organized. DIAGNOSTIC STUDIES/LAB DATA: Chest x-ray showed patchy airspace disease involving right mid and lower lung mercer. Chest/thorax CTA showed no pulmonary embolus noted, no aortic dissection, small right pleural effusion noted and small prevascular space lymph nodes and right hilar lymph nodes noted. Pertinent Lab Data: WBCs 13.0, RBCs 4.09, hemoglobin 13.2, hematocrit 40, MCV 97, MCH 32, RDW 17, glucose 109. Lactic acid 0.8. AST 43, ALT 78. Troponin 0.03 initially, but decreased to 0.01 on a redraw. BNP is 200. ASSESSMENT AND PLAN: My impression is this is a 74-year-old male with a past medical history significant for chronic obstructive pulmonary disease, hypertension, coronary artery disease, who is being admitted on 03/12/20 for chronic obstructive pulmonary disease exacerbation versus possible viral lower respiratory infection and possible new onset congestive heart failure. 1. Chronic obstructive pulmonary disease exacerbation. This is as evidenced by previous diagnosis of chronic obstructive pulmonary disease that has been poorly treated with a worsening in dyspnea and increased sputum production and not responding to his usual treatment of albuterol inhalers. He was placed on 2 L of oxygen and is continuing to require O2 supplementation. He did receive 1 nebulizer treatment in the ER; however, because he is also a COVID rule out, we will instead use albuterol inhalers as the patient has had ongoing shortness of breath daily for several years. He will also be started on tiotropium for chronic treatment and has also been started on Dulera inhaler twice a day. He declined prednisone as he states that he has had this in the past and it makes him feel very emotionally labile and which he states happens to his mother and his sister as well and states he would not take the medication. 2. Sepsis secondary to possible viral lower respiratory infection. This is as evidenced by some mild leukocytosis of 13.0 as well as an increase in shortness of breath and production of thick palacios sputum. I will order a sputum culture. He received a liter of IV fluids as well as 1 dose of ceftriaxone and azithromycin while in the emergency room. I will continue on azithromycin only in light of his chronic obstructive pulmonary disease exacerbation and with the lack of demonstration of pneumonia in his CTA. Inhalers are described as above. The patient has been swabbed for COVID and will be kept on droplet/ airborne precautions with telemetry and pulse ox monitoring and we will avoid aerosolization of his sputum. 3. Possible new onset congestive heart failure. Again, this is as evidenced by ongoing ankle swelling, pleural effusion noted in CTA, and slightly elevated BNP of 200. As the patient is a COVID rule out, we will avoid performing a transthoracic echocardiogram and defer to outpatient followup for this; however , I recommend that the patient start on furosemide tomorrow as we will focus on giving me some degree of hydration today. 4. Hypertension. Since his arrival in the emergency room, blood pressures have been elevated from the 150s as high as 170/92. In his old med reconciliation, it had not been updated. There was furosemide, which the patient had denied ever taking as well as atenolol and lisinopril, which he stated he stopped himself a long time ago because he did not trust his PCP's judgement. I suspect that his uncontrolled hypertension has likely led to possible congestive heart failure. I will reinstate lisinopril 10 mg daily tomorrow as well as furosemide. 5. Benign prostatic hypertrophy. The patient described frequent urination with a weak stream and difficulty with complete emptying of bladder, which he states was very bothersome to him. Denies any other urinary symptoms. We will send a UA to ensure that there is no infection and we will start the patient on tamsulosin. 6. Paranoid personality disorder. The patient had recently been [facility] from the [facility] on 03/07/20 and according to the med rec, he is to be taking quetiapine and mirtazapine at bedtime, which I will continue. The patient denies taking these medications at home and did exhibit some paranoid behavior during the examination. 7. Coronary artery disease. Continue aspirin 81 mg. The patient stated that previously he had been on a statin, but took himself off of it. I will add a lipid profile to his morning labs. I suspect that he will likely require atorvastatin as he already has evidence of arcus senilis. 8. DVT prophylaxis: Initiate Lovenox. 9. Code status is full code. CONDITION: Condition is guarded. DISPOSITION: Disposition is to admit [facility]BV to [address] [place] [address]. TIME SPENT: Time spent on the patient is about 60 minutes with 30 of that spent [id number]. Desirae Fajardo, HUMAN RESOURCES PROJECT COORDINATOR [id number]/[facility] #: [id number] MTDD
[2020-03-13 00:28] LABS: Urine Appearance Clear; Urine Bilirubin Negative (Negative); Urine Blood Negative (Negative); Urine Color Yellow; Urine Glucose Negative (Negative); Urine Ketones Negative (Negative); Urine Nitrite Negative (Negative); Urine Protein Negative (Negative); Urine Urobilinogen Negative (Negative)
[2020-03-13] MEDS: Mometasone/Formoter 100/5 MDI INH SCH ×3 (01:36→20:00)
[2020-03-13] MEDS: SPIRIVA Respimat* (tiotropium) 2.5 mcg/inh Inhaler INH SCH ×2 (01:36→08:24)
[2020-03-13] MEDS: Lisinopril TAB* 10 MG PO SCH (07:36)
[2020-03-13] MEDS: Tamsulosin CAP* 0.4 MG PO SCH (07:36)
[2020-03-13] MEDS: Aspirin 81 mg CHEW TAB* 81 MG TAB.CHEW PO SCH (07:37)
[2020-03-13] MEDS ORDERED: Furosemide TAB* 20 MG PO SCH (09:00)
[2020-03-13] MEDS ORDERED: Atenolol TAB* 25 MG PO SCH (09:00)
[2020-03-13] MEDS ORDERED: Furosemide TAB* 40 MG PO SCH (09:00)
[2020-03-13 09:26] LABS: ABS Basophils 0.1 10^3/ul (0-0.2); ABS Eosinophils 0.4 10^3/ul (0-0.6); ABS Lymphocytes 1.1 10^3/ul (1.0-4.8); ABS Monocytes 0.4 10^3/ul (0-0.8); ABS Neutrophils 4.3 10^3/ul (1.5-7.7); Eosinophil % 6.2 %; Hematocrit 34 % (42-52); Hemoglobin 11.2 g/dL (14.0-18.0); Lymphocyte % 17.8 %; Mean Corpuscular HGB Conc 33 g/dL (31-36); Mean Corpuscular Hemoglobin 32 pg (27-31); Mean Corpuscular Volume 97 fL (80-94); Mean Platelet Volume 8.7 fL (7.4-10.4); Nucleated Red Blood Cells % 0.1; Platelet Count 188 10^3/uL (150-450); Red Blood Count 3.48 10^6 /uL (4.18-5.48); Red Cell Distribution Width 17 % (10-15); White Blood Count 6.4 10^3/uL (3.5-10.8)
[2020-03-13 09:36] LABS: BUN/Creatinine Ratio 14.6 (8-20); Calcium 8.1 mg/dL (8.6-10.3); EGFR African American 92.9 (>60); EGFR Non-African American 76.8 (>60); HDL Cholesterol 58.4 mg/dL; Potassium 4.4 mmol/L (3.5-5.0)
[2020-03-13] MEDS ORDERED: [UNRECOGNIZED DRUG - OTHER] PO PRN (17:00)
--- NOTE | 2020-03-13 17:08 | PN ---
Subjective Date of Service: 03/13/20 Interval History: sob somewhat improved per pt.sob on ambulation Family History: Unchanged from Admission Social History: Unchanged from Admission Past Medical History: Unchanged from Admission Objective Active Medications: Acetaminophen (Tylenol Tab*) 650 mg PO Q4H PRN PRN Reason: MILD PAIN or TEMP > 100.4 Albuterol (Ventolin Hfa Inhaler*) 1 puff INH Q4H PRN PRN Reason: SHORTNESS OF BREATH Last Admin: 03/13/20 08:24 Dose: 1 puff Aspirin (Aspirin 81 Mg Chew Tab*) 81 mg PO DAILY [facility] Last Admin: 03/13/20 07:37 Dose: 81 mg Enoxaparin Sodium (Lovenox(*)) 40 mg SUBCUT Q24H [facility] Last Admin: 03/12/20 20:49 Dose: 40 mg Furosemide (Lasix Tab*) 20 mg PO DAILY [facility] Last Admin: 03/13/20 07:36 Dose: 20 mg Azithromycin (Zithromax 500 Mg/250 Ml) 500 mg in 250 mls @ 250 mls/hr IVPB Q24H [facility] Last Admin: 03/12/20 18:57 Dose: 250 mls/hr Lisinopril (Prinivil Tab*) 10 mg PO DAILY [facility] Last Admin: 03/13/20 07:36 Dose: 10 mg Mirtazapine (Remeron Tab*) 7.5 mg PO BEDTIME [facility] Last Admin: 03/12/20 21:10 Dose: 7.5 mg Mometasone Furoate/Formoterol Fumar (Dulera 100/5 Mdi*) 2 puff INH BID [facility] Last Admin: 03/13/20 08:24 Dose: 2 puff Non-Formulary Medication (Non Formulary Med10*) 1 admin PO Q6HR PRN PRN Reason: COLD SYMPTOMS Prochlorperazine Edisylate (Compazine Inj*) 5 mg IV Q6H PRN PRN Reason: NAUSEA/VOMITING Quetiapine Fumarate (Seroquel Tab*) 200 mg PO BEDTIME [facility] Last Admin: 03/12/20 21:10 Dose: 200 mg Tamsulosin HCl (Flomax Cap*) 0.4 mg PO DAILY [facility] Last Admin: 03/13/20 07:36 Dose: 0.4 mg Tiotropium [place] (Spiriva Respimat 2.5 Mcg) 2 puff INH DAILY [facility] Last Admin: 03/13/20 08:24 Dose: 2 puff Vital Signs - 8 hr 03/13/20 03/13/20 11:00 15:04 Temperature 97.0 F 97.0 F Pulse Rate 97 81 Respiratory 20 20 Rate Blood Pressure 109/57 113/64 (mmHg) O2 Sat by Pulse 95 95 Oximetry Oxygen Devices in Use Now: Nasal Cannula Eyes: No Scleral Icterus Ears/Nose/Mouth/Throat: NL Teeth, Lips, Gums Neck: NL Appearance and Movements; NL JVP Respiratory: - - bronchial breath sounds Cardiovascular: NL Sounds; No Murmurs; No JVD, RRR Abdominal: NL Sounds; No Tenderness; No Distention Extremities: - - edema Neurological: Alert and Oriented x 3 Result Diagrams: 03/13/20 09:11 03/13/20 09:11 Microbiology and Other Data: Microbiology 03/13/20 12:45 Gram Stain - Final Sputum Expectorated Assess/Plan/Problems-Billing Assessment: - Patient Problems (1) Sepsis Current Visit: Yes Status: Acute Comment: sec viral illness/pneumonia continue azithromycin r/o covid (2) Pneumonia Current Visit: Yes Status: Acute Code(s): J18.9 - PNEUMONIA, UNSPECIFIED ORGANISM SNOMED Code(s): 319705788 Comment: azithromycin improving leukocytosis covid r/o (3) COPD (chronic obstructive pulmonary disease) Current Visit: Yes Status: Acute Code(s): J44.9 - CHRONIC OBSTRUCTIVE PULMONARY DISEASE, UNSPECIFIED SNOMED Code(s): 93496377 Comment: exacerbation on 02 inhalers,no steroids as covid r/o and pt did nto want steroids will follow resp status closely (4) Paranoid personality Current Visit: No Status: Acute Code(s): F60.0 - PARANOID PERSONALITY DISORDER SNOMED Code(s): 32979681
[2020-03-13] MEDS: Azithromycin 500 mg/250 ml NS 500 MG/250 ML BAG IVPB SCH (18:15)
[2020-03-13] MEDS: cefTRIAXone(*) 1 GM in NS 0.9% 50 ML* 50 ML IVPB SCH (19:30)
[2020-03-13] MEDS: Enoxaparin(*) 40 MG/0.4 ML SYR SUBCUT SCH (20:16)
[2020-03-13] MEDS: Mirtazapine TAB* 15 MG PO SCH (20:16)
[2020-03-13] MEDS: QUEtiapine TAB* 100 MG PO SCH (20:17)
[2020-03-13] MEDS ORDERED: Senna TAB 8.6 mg* TAB PO PRN (22:10)
[2020-03-14] MEDS: SPIRIVA Respimat* (tiotropium) 2.5 mcg/inh Inhaler INH SCH (07:44)
[2020-03-14] MEDS: Mometasone/Formoter 100/5 MDI INH SCH ×2 (07:44→19:49)
[2020-03-14] MEDS: Aspirin 81 mg CHEW TAB* 81 MG TAB.CHEW PO SCH (08:17)
[2020-03-14] MEDS: Lisinopril TAB* 10 MG PO SCH (08:17)
[2020-03-14] MEDS: Tamsulosin CAP* 0.4 MG PO SCH (08:17)
[2020-03-14] MEDS: Furosemide TAB* 20 MG PO SCH (08:18)
[2020-03-14 09:36] LABS: ABS Basophils 0.1 10^3/ul (0-0.2); ABS Eosinophils 0.3 10^3/ul (0-0.6); ABS Lymphocytes 1.1 10^3/ul (1.0-4.8); ABS Monocytes 0.5 10^3/ul (0-0.8); ABS Neutrophils 4.8 10^3/ul (1.5-7.7); Eosinophil % 4.6 %; Hematocrit 35 % (42-52); Hemoglobin 11.6 g/dL (14.0-18.0); Lymphocyte % 16.9 %; Mean Corpuscular HGB Conc 33 g/dL (31-36); Mean Corpuscular Hemoglobin 32 pg (27-31); Mean Corpuscular Volume 98 fL (80-94); Platelet Count 208 10^3/uL (150-450); Red Blood Count 3.58 10^6 /uL (4.18-5.48); Red Cell Distribution Width 17 % (10-15); White Blood Count 6.8 10^3/uL (3.5-10.8)
[2020-03-14 09:56] LABS: BUN/Creatinine Ratio 15.5 (8-20); Calcium 8.1 mg/dL (8.6-10.3); EGFR African American 85.7 (>60); EGFR Non-African American 70.8 (>60); Potassium 4.3 mmol/L (3.5-5.0)
--- NOTE | 2020-03-14 12:34 | PN ---
Subjective Date of Service: 03/14/20 Family History: Unchanged from Admission Social History: Unchanged from Admission Past Medical History: Unchanged from Admission Objective Active Medications: Acetaminophen (Tylenol Tab*) 650 mg PO Q4H PRN PRN Reason: MILD PAIN or TEMP > 100.4 Albuterol (Ventolin Hfa Inhaler*) 1 puff INH Q4H PRN PRN Reason: SHORTNESS OF BREATH Last Admin: 03/13/20 08:24 Dose: 1 puff Aspirin (Aspirin 81 Mg Chew Tab*) 81 mg PO DAILY [facility] Last Admin: 03/14/20 08:17 Dose: 81 mg Enoxaparin Sodium (Lovenox(*)) 40 mg SUBCUT Q24H [facility] Last Admin: 03/13/20 20:16 Dose: 40 mg Furosemide (Lasix Tab*) 40 mg PO DAILY [facility] Last Admin: 03/14/20 08:18 Dose: 40 mg Azithromycin (Zithromax 500 Mg/250 Ml) 500 mg in 250 mls @ 250 mls/hr IVPB Q24H [facility] Last Admin: 03/13/20 18:15 Dose: 250 mls/hr Ceftriaxone Sodium 1 gm/ (Sodium Chloride) 50 mls @ 100 mls/hr IVPB Q24H [facility] Last Admin: 03/13/20 19:30 Dose: 100 mls/hr Lisinopril (Prinivil Tab*) 10 mg PO DAILY [facility] Last Admin: 03/14/20 08:17 Dose: 10 mg Mirtazapine (Remeron Tab*) 7.5 mg PO BEDTIME [facility] Last Admin: 03/13/20 20:16 Dose: 7.5 mg Mometasone Furoate/Formoterol Fumar (Dulera 100/5 Mdi*) 2 puff INH BID [facility] Last Admin: 03/14/20 07:44 Dose: 2 puff Non-Formulary Medication (Non Formulary Med10*) 1 admin PO Q6HR PRN PRN Reason: COLD SYMPTOMS Last Admin: 03/14/20 01:33 Dose: 1 admin Prochlorperazine Edisylate (Compazine Inj*) 5 mg IV Q6H PRN PRN Reason: NAUSEA/VOMITING Quetiapine Fumarate (Seroquel Tab*) 200 mg PO BEDTIME [facility] Last Admin: 03/13/20 20:17 Dose: 200 mg Senna (Senokot 8.6 Mg Tab*) 1 tab PO BEDTIME PRN PRN Reason: CONSTIPATION Tamsulosin HCl (Flomax Cap*) 0.4 mg PO DAILY [facility] Last Admin: 03/14/20 08:17 Dose: 0.4 mg Tiotropium [place] (Spiriva Respimat 2.5 Mcg) 2 puff INH DAILY [facility] Last Admin: 03/14/20 07:44 Dose: 2 puff Vital Signs - 8 hr 03/14/20 03/14/20 03/14/20 06:00 07:46 08:00 Temperature 97.8 F Pulse Rate 86 103 Respiratory 19 20 19 Rate Blood Pressure 110/58 (mmHg) O2 Sat by Pulse 97 92 97 Oximetry Oxygen Devices in Use Now: Nasal Cannula Result Diagrams: 03/14/20 08:38 03/14/20 08:38 Microbiology and Other Data: Microbiology 03/13/20 12:45 Gram Stain - Final Sputum Expectorated Assess/Plan/Problems-Billing Assessment: - Patient Problems (1) Sepsis Current Visit: Yes Status: Acute Comment: sec viral illness/pneumonia continue azithromycin r/o covid (2) Pneumonia Current Visit: Yes Status: Acute Code(s): J18.9 - PNEUMONIA, UNSPECIFIED ORGANISM SNOMED Code(s): 692798156 Comment: azithromycin improving leukocytosis covid r/o (3) COPD (chronic obstructive pulmonary disease) Current Visit: Yes Status: Acute Code(s): J44.9 - CHRONIC OBSTRUCTIVE PULMONARY DISEASE, UNSPECIFIED SNOMED Code(s): 45136321 Comment: exacerbation on 02 inhalers,no steroids as covid r/o and pt did nto want steroids will follow resp status closely (4) Paranoid personality Current Visit: No Status: Acute Code(s): F60.0 - PARANOID PERSONALITY DISORDER SNOMED Code(s): 83826480
--- NOTE | 2020-03-14 12:52 | PN ---
Subjective Date of Service: 03/14/20 Interval History: Reports improvement in breathing Family History: Unchanged from Admission Social History: Unchanged from Admission Past Medical History: Unchanged from Admission Objective Active Medications: Acetaminophen (Tylenol Tab*) 650 mg PO Q4H PRN PRN Reason: MILD PAIN or TEMP > 100.4 Albuterol (Ventolin Hfa Inhaler*) 1 puff INH Q4H PRN PRN Reason: SHORTNESS OF BREATH Last Admin: 03/13/20 08:24 Dose: 1 puff Aspirin (Aspirin 81 Mg Chew Tab*) 81 mg PO DAILY [facility] Last Admin: 03/14/20 08:17 Dose: 81 mg Enoxaparin Sodium (Lovenox(*)) 40 mg SUBCUT Q24H [facility] Last Admin: 03/13/20 20:16 Dose: 40 mg Furosemide (Lasix Tab*) 40 mg PO DAILY [facility] Last Admin: 03/14/20 08:18 Dose: 40 mg Azithromycin (Zithromax 500 Mg/250 Ml) 500 mg in 250 mls @ 250 mls/hr IVPB Q24H [facility] Last Admin: 03/13/20 18:15 Dose: 250 mls/hr Ceftriaxone Sodium 1 gm/ (Sodium Chloride) 50 mls @ 100 mls/hr IVPB Q24H [facility] Last Admin: 03/13/20 19:30 Dose: 100 mls/hr Lisinopril (Prinivil Tab*) 10 mg PO DAILY [facility] Last Admin: 03/14/20 08:17 Dose: 10 mg Mirtazapine (Remeron Tab*) 7.5 mg PO BEDTIME [facility] Last Admin: 03/13/20 20:16 Dose: 7.5 mg Mometasone Furoate/Formoterol Fumar (Dulera 100/5 Mdi*) 2 puff INH BID [facility] Last Admin: 03/14/20 07:44 Dose: 2 puff Non-Formulary Medication (Non Formulary Med10*) 1 admin PO Q6HR PRN PRN Reason: COLD SYMPTOMS Last Admin: 03/14/20 01:33 Dose: 1 admin Prochlorperazine Edisylate (Compazine Inj*) 5 mg IV Q6H PRN PRN Reason: NAUSEA/VOMITING Quetiapine Fumarate (Seroquel Tab*) 200 mg PO BEDTIME [facility] Last Admin: 03/13/20 20:17 Dose: 200 mg Senna (Senokot 8.6 Mg Tab*) 1 tab PO BEDTIME PRN PRN Reason: CONSTIPATION Tamsulosin HCl (Flomax Cap*) 0.4 mg PO DAILY [facility] Last Admin: 03/14/20 08:17 Dose: 0.4 mg Tiotropium [place] (Spiriva Respimat 2.5 Mcg) 2 puff INH DAILY [facility] Last Admin: 03/14/20 07:44 Dose: 2 puff Vital Signs - 8 hr 03/14/20 03/14/20 03/14/20 06:00 07:46 08:00 Temperature 97.8 F Pulse Rate 86 103 Respiratory 19 20 19 Rate Blood Pressure 110/58 (mmHg) O2 Sat by Pulse 97 92 97 Oximetry Oxygen Devices in Use Now: Nasal Cannula Eyes: No Scleral Icterus Ears/Nose/Mouth/Throat: NL Teeth, Lips, Gums Neck: NL Appearance and Movements; NL JVP Respiratory: Symmetrical Chest Expansion and Respiratory Effort Extremities: - - edema present Neurological: Alert and Oriented x 3 Result Diagrams: 03/14/20 08:38 03/14/20 08:38 Microbiology and Other Data: Microbiology 03/13/20 12:45 Gram Stain - Final Sputum Expectorated Assess/Plan/Problems-Billing Assessment: - Patient Problems (1) Sepsis Current Visit: Yes Status: Acute Comment: sec viral illness/pneumonia continue azithromycin r/o covid started on ceftriaxone as well (2) Pneumonia Current Visit: Yes Status: Acute Code(s): J18.9 - PNEUMONIA, UNSPECIFIED ORGANISM SNOMED Code(s): 387202764 Comment: azithromycin and ceftriaxone improving leukocytosis covid r/o (3) COPD (chronic obstructive pulmonary disease) Current Visit: Yes Status: Acute Code(s): J44.9 - CHRONIC OBSTRUCTIVE PULMONARY DISEASE, UNSPECIFIED SNOMED Code(s): 53302351 Comment: exacerbation on 02 inhalers,no steroids as covid r/o and pt did nto want steroids will follow resp status closely (4) Paranoid personality Current Visit: No Status: Acute Code(s): F60.0 - PARANOID PERSONALITY DISORDER SNOMED Code(s): 67125810
[2020-03-14] MEDS: cefTRIAXone(*) 1 GM in NS 0.9% 50 ML* 50 ML IVPB SCH (16:59)
[2020-03-14] MEDS: Azithromycin 500 mg/250 ml NS 500 MG/250 ML BAG IVPB SCH (19:46)
[2020-03-14] MEDS: Enoxaparin(*) 40 MG/0.4 ML SYR SUBCUT SCH (20:55)
[2020-03-14] MEDS: Mirtazapine TAB* 15 MG PO SCH (20:56)
[2020-03-14] MEDS: QUEtiapine TAB* 100 MG PO SCH (20:56)
[2020-03-15 07:12] LABS: ABS Basophils 0.1 10^3/ul (0-0.2); ABS Eosinophils 0.4 10^3/ul (0-0.6); ABS Lymphocytes 1.7 10^3/ul (1.0-4.8); ABS Monocytes 0.5 10^3/ul (0-0.8); ABS Neutrophils 4.4 10^3/ul (1.5-7.7); Eosinophil % 5.2 %; Hematocrit 33 % (42-52); Hemoglobin 10.9 g/dL (14.0-18.0); Lymphocyte % 23.5 %; Mean Corpuscular HGB Conc 34 g/dL (31-36); Mean Corpuscular Hemoglobin 33 pg (27-31); Mean Corpuscular Volume 97 fL (80-94); Mean Platelet Volume 8.6 fL (7.4-10.4); Nucleated Red Blood Cells % 0.1; Platelet Count 189 10^3/uL (150-450); Red Blood Count 3.33 10^6 /uL (4.18-5.48); Red Cell Distribution Width 17 % (10-15)
[2020-03-15 07:24] LABS: BUN/Creatinine Ratio 18.6 (8-20); Calcium 7.7 mg/dL (8.6-10.3); EGFR African American 91.8 (>60); EGFR Non-African American 75.9 (>60); Potassium 4.2 mmol/L (3.5-5.0)
[2020-03-15] MEDS: SPIRIVA Respimat* (tiotropium) 2.5 mcg/inh Inhaler INH SCH (07:49)
[2020-03-15] MEDS: Mometasone/Formoter 100/5 MDI INH SCH (07:49)
[2020-03-15] MEDS: Tamsulosin CAP* 0.4 MG PO SCH (08:27)
[2020-03-15] MEDS: Lisinopril TAB* 10 MG PO SCH (08:27)
[2020-03-15] MEDS: Furosemide TAB* 20 MG PO SCH (08:27)
[2020-03-15] MEDS: Aspirin 81 mg CHEW TAB* 81 MG TAB.CHEW PO SCH (08:27)
[2020-03-15 13:37] VITALS: BP 122/60
--- NOTE | 2020-03-15 16:31 | DS ---
DISCHARGE SUMMARY: DATE OF ADMISSION: 03/12/20 DATE OF DISCHARGE: 03/15/20 PRIMARY DIAGNOSES: 1. Chronic obstructive pulmonary disease exacerbation. 2. Community-acquired pneumonia. 3. Sepsis secondary to pneumonia. SECONDARY DIAGNOSES: 1. Chronic obstructive pulmonary disease. 2. Anxiety. 3. Hypertension. 4. Coronary artery disease. 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 HOSPITAL COURSE: A 74-year-old male with past medical history of COPD, hypertension, coronary artery disease, and paranoid personality disorder came into the ER after 2-day history of difficulty breathing and cough. The patient was also in the behavioral services unit from 02/20/20 to 03/07/20 and was in contact with sick person. The patient usually wears 2.5 L of oxygen at nighttime alone. In light of his worsening dyspnea, the patient was swabbed for COVID. The patient's COVID test at the time of discharge is noted to be negative, but the patient has been re-swabbed for his second COVID test and the patient has been advised to stay in isolation and quarantine himself for another 7 days at least till his repeat COVID test is available. The patient was started on ceftriaxone and azithromycin for community-acquired pneumonia and the patient was not started on steroids as COVID was in consideration and the patient also did not want steroids due to his borderline personality disorder. Inhaled steroids were used and at this time, the patient will be discharged on Advair Diskus to use for his COPD as an outpatient. The patient will also be discharged on Spiriva for COPD management as an outpatient. With inhalers and antibiotics for his pneumonia, the patient's COPD and pneumonia have improved. The patient desaturated to 87% on room air and the patient already has oxygen at home. The patient will need 24 hours oxygen, currently the patient to continue 2.5 L of oxygen 24 hours now and after 2 weeks can determine if the patient can go to nighttime only oxygen. The patient to follow up with a new PCP in a week. The hospital is setting up a new primary care doctor for the patient. The patient also noted to have some BPH and was started on Flomax with improvement. The patient's sepsis secondary to pneumonia has resolved. At this time, his leukocytosis has resolved as well and the patient reports that he feels well and wants to go home. Vitals and labs are noted to be stable at the time of discharge. PHYSICAL EXAMINATION: Temperature 97.6, pulse 90, respiratory rate 20, oxygen saturation 99% on 2 L, blood pressure 122/60. HEENT: NCAT. Heart: S1, S2 present. Regular at the time of exam. Lungs: Clear to auscultation. Abdomen : Soft. Extremities: Some edema. Neuro: Alert and oriented. MEDICATION LIST: 1. Xanax 2 mg p.o. t.i.d. p.r.n. 2. Furosemide 40 mg p.o. daily. 3. Atenolol 25 mg p.o. daily. 4. Aspirin 81 mg daily. 5. Albuterol inhaler every 4 hours as needed. 6. Seroquel 200 mg p.o. at bedtime. 7. Mirtazapine 7.5 mg p.o. at bedtime. 8. Lisinopril 10 mg p.o. daily. 9. Spiriva 2 puffs inhalation once a day 10. Flomax 0.4 mg p.o. daily. 11. Advair Diskus 1 puff inhalation b.i.d. 12. Ceftin 500 mg p.o. b.i.d. for 5 more days. 13. Azithromycin 500 mg p.o. daily for 5 more days. LABS AT THE TIME OF DISCHARGE: WBC 7, hemoglobin 10.9, hematocrit 33, platelets noted to be 189. Sodium 141, potassium 4.2, chloride 106, CO2 of 32, BUN 18, creatinine 0.97. Initial COVID test from 03/12/20 noted to be negative. Re- swabbed again on 03/15/20. The patient to await results and quarantine as an outpatient. IMAGING: The patient had a chest/thorax CTA, which showed no pulmonary embolism , no aortic dissection, small right pleural effusion, small prevascular space lymph nodes and right hilar lymph nodes noted. A chest x-ray from 03/12/20 showed patchy air space disease involving right mid and lower lung mercer. CONDITION AT THE TIME OF DISCHARGE: Stable. DISPOSITION: Home. TIME SPENT: Total time spent on discharge is equal to 50 minutes. [id number]/[facility] #: [id number] [facility] CENTERMichelle
== END 2020-03-15 16:20 | disposition home or self-care (01) | DRG 871 ==
LOC: ED 14:15 → MED 18:39 → OBSVTOIN 03-13 14:19
PROVIDERS: ADMIT Nurse Practitioner Adult Health; ATTEND Internal Medicine
DX: A41.9 Sepsis, unspecified organism (principal); J18.9 Pneumonia, unspecified organism; J44.0 Chronic obstructive pulmonary disease with (acute) lower respiratory infection; J44.1 Chronic obstructive pulmonary disease with (acute) exacerbation; F32.3 Major depressive disorder, single episode, severe with psychotic features; I25.10 Atherosclerotic heart disease of native coronary artery without angina pectoris; E78.00 Pure hypercholesterolemia, unspecified; F41.0 Panic disorder [episodic paroxysmal anxiety]; F60.0 Paranoid personality disorder; F60.3 Borderline personality disorder; N40.0 Benign prostatic hyperplasia without lower urinary tract symptoms; I10 Essential (primary) hypertension; Z20.828 Contact with and (suspected) exposure to other viral communicable diseases; I25.2 Old myocardial infarction; Z87.891 Personal history of nicotine dependence; Z99.81 Dependence on supplemental oxygen; Z79.82 Long term (current) use of aspirin; Z79.899 Other long term (current) drug therapy
CPT/HCPCS: 36415; 71045; 71275; 80048; 80053; 80061; 81003; 83605; 83735; 83880; 84484; 85025; 87070; 87205; 87635; 93005; 94640; 96360; 99283; A9270-GY; G0378; G2023; J0456; J0696; J1650; J3535; Q9967

== ENCOUNTER 2020-03-23 07:17 | Emergency (ER) | payer MEDICARE ==
--- NOTE | 2020-03-23 07:54 | ED ---
Skin Complaint - HPI Summary HPI Summary: 74-year-old male with a significant past medical history of coronary artery disease, hyperlipidemia, hypertension, myocardial infarction, COPD on 2 L of oxygen daily continuously, TIA, panic disorder, anxiety, depression, alcohol abuse presents to the emergency department today complaining of approximately 4 days of pleuritic bilateral lower extremities with associated erythema and edema. Patient states in the past he has had swelling of his lower extremities which was managed with diuretics and compression stockings however recently the swelling has become worse and his legs become very itchy. Patient also notes multiple excoriations with bilateral legs as well as to superficial ulcers to the left lateral leg just drained spontaneously. Patient denies past medical history of diabetes. Patient denies past medical history of heart failure. Patient was recently tested negative for COVID19 approximately 2 weeks ago and continues to remain afebrile, denying dyspnea, sore throat, nasal congestion. This patient was recently seen in this emergency department and discharged from the psychiatric unit on 03/13/20 due to having pneumonia and paranoid personality disorder. Patient feels far improved from his discharge and is no longer complaining of increased shortness of breath. Patient was treated with azithromycin and Ceftin. Patient states he has no primary care provider as he was fired. - History of Current Complaint Time Seen by Provider: 03/23/20 07:35 Stated Complaint: LEG PAIN PER PT Hx Obtained From: Patient Onset/Duration: Started Days Ago Skin Exposure Onset/Duration: Days Ago Timing: Constant Onset Severity: Mild Current Severity: Mild Pain Scale Used: 0-10 Numeric Skin Location: Leg Character: Swelling, Pruritus, Pain, Redness, Painful Associated Signs & Symptoms: Rash - Additional Pertinent History Primary Care Physician: [id number] - Allergy/Home Medications Allergies/Adverse Reactions: Allergies Allergy/AdvReac Type Severity Reaction Status Date / Time No Known Allergies Allergy Verified 03/12/20 13:46 Home Medications: Home Medications Aspirin 81 mg CHEW TAB* 81 mg PO DAILY 05/02/14 [History Confirmed 03/23/20] Albuterol HFA INHALER* [Ventolin HFA Inhaler*] 2 puff INH Q4H PRN 02/16/20 [ History Confirmed 03/23/20] Atenolol TAB* [Tenormin TAB* 25 MG] 25 mg PO DAILY 02/16/20 [History Confirmed 03/23/20] Lisinopril TAB* [Prinivil TAB 10 MG*] 5 mg PO DAILY 02/16/20 [History Confirmed 03/23/20] Furosemide 40 mg PO DAILY #30 tablet 03/07/20 [Rx Confirmed 03/23/20] ALPRAZolam TAB* [Xanax TAB*] 0.25 mg PO TID PRN 03/23/20 [History Confirmed ] Multivitamins/Minerals TAB* [Theragran/minerals TAB*] 1 tab PO DAILY 03/23/20 [ History Confirmed 03/23/20] [place]-3 Fatty Acids (Nf) [Fish Oil (NF)] 1,000 mg PO DAILY 03/23/20 [History Confirmed 03/23/20] Saw/Vit E/Sod Senia/Lyc/Beta/Pyg [Complete Prostate Health] 1 tab PO DAILY [History Confirmed 03/23/20] Simvastatin TAB(NF) [Zocor(NF)] 10 mg PO DAILY 03/23/20 [History Confirmed 03/23] Simvastatin TAB(NF) [Zocor(NF)] 20 mg PO DAILY 03/23/20 [History Confirmed 03/23] Tiotropium CAPSULE (NF) [Spiriva CAPSULE (NF)] 1 cap.inh INH DAILY 03/23/20 [ History Confirmed 03/23/20] PMH/Surg Hx/FS Hx/Imm Hx Endocrine/Hematology History: Denies: Hx Diabetes, Hx Thyroid Disease Cardiovascular History: Reports: Hx Coronary Artery Disease, Hx Hypercholesterolemia, Hx Hypertension - ON MEDICATION FOR, Hx Myocardial Infarction, Other Cardiovascular Problems/Disorders - cardiac cath Denies: Hx Angina, Hx Pacemaker/ICD Respiratory History: Reports: Hx Chronic Obstructive Pulmonary Disease (COPD) Denies: Hx Asthma GI History: Reports: Hx Hiatal Hernia Musculoskeletal History: Denies: Hx Arthritis, Hx Back Problems, Hx Bursitis, Hx Congenital Bone Abnormalities, Hx Fibromyalgia, Hx Gout, Hx Orthopedic Injury Sensory History: Denies: Hx Contacts or Glasses, Hx Deafness, Hx Hearing Aid Opthamlomology History: Denies: Hx Contacts or Glasses Neurological History: Reports: Hx Transient Ischemic Attacks (TIA) Psychiatric History: Reports: Hx Anxiety, Hx Depression, Hx Panic Disorder - SOMETIMES GETS PANIC ATTACKS, Hx Substance Abuse - ETOH Denies: Hx Eating Disorder, Hx Post Traumatic Stress Disorder, Hx Schizophrenia, Hx Bipolar Disorder, Hx Suicide Attempt - Surgical History Surgery Procedure, Year, and Place: RIGHT ANKLE SURGERY, RIGHT ABDOMINAL HERNIA 2013, COLONOSCOPY X2 POLYPS REMOVED, cardiac cath times two- last one 1-2 yrs ago Infectious Disease History: Denies: Hx Clostridium Difficile, Hx Hepatitis, Hx Human Immunodeficiency Virus (HIV), Hx of Known/Suspected MRSA, Hx Shingles, Hx Tuberculosis, Hx Known/ Suspected VRE, Hx Known/Suspected VRSA, History Other Infectious Disease, Traveled Outside the [place] in Last 30 Days - Family History Known Family History: Positive: Hypertension - Social History Alcohol Use: None Alcohol Amount: Hx alcoholism Hx Substance Use: No Substance Use Type: Reports: None Hx Tobacco Use: Yes Smoking Status (MU): Former Smoker Type: Cigarettes Amount Used/How Often: varies Length of Time of Smoking/Using Tobacco: 50 YRS Have You Smoked in the Last Year: Yes Review of Systems Constitutional: Negative Eyes: Negative ENT: Negative Cardiovascular: Negative Respiratory: Negative Gastrointestinal: Negative Genitourinary: Negative Positive: Edema. Negative: Arthralgia, Myalgia, Decreased ROM Positive: Rash. Negative: Bruising Neurological/Mental Status: Negative Psychological: Normal All Other Systems Reviewed And Are Negative: Yes Physical Exam - Summary Physical Exam Summary: Patient is no acute distress resting comfortably on the hospital stretcher. Patient is ventilatory and have 5 out of 5 strength bilaterally. Patient has full range of motion of the lower from his bilaterally. Patient is neurovascularly intact. Patient has 2+ dorsalis pedis pulse bilaterally. Inspection of the lower extremities reveals mild erythema with nonpitting moderate amount of edema to the bilateral lower extremities. There are multiple excoriation tomlinson noted on the bilateral lower extremities consistent with patient scratching his legs. There are 2 superficial ulcers noted to the left lateral leg which have appeared to have drained spontaneously. No evidence of significant infection however there are circumferential nonindurated areas of erythema surrounding these ulcers. Physical exam appears consistent with chronic venous insufficiency for which the patient has previously been treated for with new ulcerations. Triage Information Reviewed: Yes Vital Signs Reviewed: Yes Appearance: Positive: Well-Appearing, No Pain Distress, Well-Nourished Skin: Positive: Warm, Skin Color Reflects Adequate Perfusion Eyes: Positive: EOMI, BARI ENT: Positive: Hearing grossly normal Respiratory/Lung Sounds: Positive: Breath Sounds Present, Decreased Breath Sounds. Negative: Unable to speak in full sentences, Fatigue Cardiovascular: Positive: RRR, S1, S2 Abdomen Description: Positive: Nontender, Soft Musculoskeletal: Positive: Strength/ROM Intact Neurological: Positive: Sensory/Motor Intact, Alert, Oriented to Person Place, Time, Normal Gait, Facial Symmetry, Speech Normal Psychiatric: Positive: Affect/Mood Appropriate AVPU Assessment: Alert Procedures - Sedation Patient Received Moderate/Deep Sedation with Procedure: No Diagnostics - Laboratory Result Diagrams: 03/23/20 08:00 03/23/20 08:00 Lab Statement: Any lab studies that have been ordered have been reviewed, and results considered in the medical decision making process. Course/Dx - Course Course Of Treatment: Patient was evaluated in the emergency department today due to bilateral lower trauma or pruritus with associated mild nonpitting edema and erythema. Physical exam appears consistent with chronic venous insufficiency with new ulcerations and multiple excoriations due to pruritus. Ulcerations. Be surrounded with an early cellulitis. Laboratory studies were done to evaluate possible infections and etiology of pruritus such as hepatic failure. Laboratory studies show no significant abnormalities with no evidence of leukocytosis or significant anemia, electrolyte disturbance, hepatic failure , renal dysfunction, heart failure. Patient will be given antibiotics for cellulitis and [facility] and management of the cellulitis and his chronic venous insufficiency and stasis dermatitis. Patient discharged to outpatient follow-up. Patient agreeable with plan. - Differential Diagnoses - Skin Complaint Differential Diagnoses: Cellulitis, Contact Dermatitis, Drug Rash, Eczema, Local Allergic Reaction, Other - Chronic venous insufficiency, infection of lower extremities, hepatic insufficiency, nephrotic syndrome, protein deficiency - Diagnoses Provider Diagnoses: Chronic venous stasis dermatitis of both lower extremities, Pruritus, Cellulitis - Critical Care Time Critical Care Statement: Critical care time is provided exclusive of any time spent performing procedures. Discharge ED - Sign-Out/Discharge Documenting (check all that apply): Patient Departure - Discharge Plan Condition: Stable Disposition: HOME Patient Education Materials: Cellulitis (ED), Stasis Dermatitis (ED), Leg Edema (ED) Referrals: [facility] [Outside] - 3 Days Additional Instructions: The swelling of the lower extremities appears to be a chronic issue. Please continue to wear compression stockings and elevate your legs and continue to take your diuretic medication to reduce swelling. Please take your antibiotic as directed to prevent infection of your wounds. [facility] and management to establish care. Please return to this emergency Department immediately should you develop any new or worsening symptoms. Please take your antibiotic as directed for your cellulitis. - Billing Disposition and Condition Condition: STABLE Disposition: Home
[2020-03-23] MEDS ORDERED: DOXYcycline CAP(*) 100 MG PO ONE (08:14)
[2020-03-23 08:20] LABS: Hematocrit 39 % (42-52); Mean Corpuscular HGB Conc 34 g/dL (31-36); Mean Corpuscular Hemoglobin 33 pg (27-31); Mean Corpuscular Volume 97 fL (80-94); Mean Platelet Volume 8.7 fL (7.4-10.4); Platelet Count 268 10^3/uL (150-450); Red Blood Count 4.02 10^6 /uL (4.18-5.48); Red Cell Distribution Width 17 % (10-15); White Blood Count 8.6 10^3/uL (3.5-10.8)
[2020-03-23 08:34] LABS: Albumin/Globulin Ratio 1.3 (1-3); BUN/Creatinine Ratio 20.2 (8-20); C Reactive Protein 2.38 mg/L (<8.01); Calcium 8.5 mg/dL (8.6-10.3); EGFR African American 89.7 (>60); EGFR Non-African American 74.1 (>60); Globulin 3.1 g/dL (2-4); Potassium 3.9 mmol/L (3.5-5.0); Total Bilirubin 0.5 mg/dL (0.2-1.0); Total Protein 7.1 g/dL (6.4-8.9)
[2020-03-23 08:39] LABS: ABS Basophils 0.1 10^3/ul (0-0.2); ABS Eosinophils 0.5 10^3/ul (0-0.6); ABS Lymphocytes 1.4 10^3/ul (1.0-4.8); ABS Monocytes 0.6 10^3/ul (0-0.8); Eosinophil % 5.8 %; Lymphocyte % 16.2 %; Nucleated Red Blood Cells % 0.1
[2020-03-23 09:34] LABS: Erythrocyte Sed Rate 17 mm/Hr (0-19)
[2020-03-23 10:33] VITALS: BP 146/94
== END 2020-03-23 10:23 | disposition home or self-care (01) ==
LOC: ED 07:17
DX: I87.2 Venous insufficiency (chronic) (peripheral) (principal); L29.9 Pruritus, unspecified; L03.116 Cellulitis of left lower limb; L03.115 Cellulitis of right lower limb; F60.0 Paranoid personality disorder; I25.10 Atherosclerotic heart disease of native coronary artery without angina pectoris; E78.00 Pure hypercholesterolemia, unspecified; I10 Essential (primary) hypertension; I25.2 Old myocardial infarction; J44.9 Chronic obstructive pulmonary disease, unspecified; Z86.73 Personal history of transient ischemic attack (TIA), and cerebral infarction without residual deficits; Z79.82 Long term (current) use of aspirin; Z87.891 Personal history of nicotine dependence; R06.02 Shortness of breath
CPT/HCPCS: 36415; 80053; 83880; 85025; 85652; 86140; 99283; A9270-GY

== ENCOUNTER 2022-02-02 03:26 | Inpatient (IN) ==
[2022-02-02 05:14] LABS: ABS Basophils 0.1 10^3/ul (0-0.2); ABS Eosinophils 0.1 10^3/ul (0-0.6); ABS Lymphocytes 1.1 10^3/ul (1.0-4.8); ABS Monocytes 0.7 10^3/ul (0-0.8); ABS Neutrophils 7.9 10^3/ul (1.5-7.7); Eosinophil % 1.1 %; Hematocrit 39 % (42-52); Hemoglobin 13.3 g/dL (14.0-18.0); Lymphocyte % 11.2 %; Mean Corpuscular HGB Conc 34 g/dL (31-36); Mean Corpuscular Hemoglobin 31 pg (27-31); Mean Corpuscular Volume 93 fL (80-94); Mean Platelet Volume 8.9 fL (7.4-10.4); Platelet Count 241 10^3/uL (150-450); Red Blood Count 4.25 10^6 /uL (4.18-5.48); Red Cell Distribution Width 18 % (10-15)
[2022-02-02 05:32] LABS: Troponin I 0.01 ng/mL (<0.03)
[2022-02-02 05:46] LABS: Albumin 4.2 g/dL (3.2-5.2); Calcium 8.9 mg/dL (8.6-10.3); Potassium 3.9 mmol/L (3.5-5.0); Total Bilirubin 0.8 mg/dL (0.2-1.0)
[2022-02-02 05:52] LABS: Albumin/Globulin Ratio 1.6 (1-3); C Reactive Protein 3.9 mg/L (<8.01); Globulin 2.6 g/dL (2-4); Total Protein 6.8 g/dL (6.4-8.9); eGFR CKD-EPI 61.8 (>60)
[2022-02-02 06:50] LABS: Urine Appearance Clear; Urine Bilirubin Negative (Negative); Urine Blood Negative (Negative); Urine Color Yellow; Urine Glucose Negative (Negative); Urine Ketones Trace (Negative); Urine Nitrite Negative (Negative); Urine Protein Negative (Negative); Urine Specific Gravity 1.021 (1.002-1.030); Urine Urobilinogen Negative (Negative)
[2022-02-02 07:12] LABS: Urine Benzodiazepine Screen Presumptive Positive (None Detect); Urine Cannabinoids Screen None Detected (None Detect); Urine Opiates Screen None Detected (None Detect)
[2022-02-02] MEDS ORDERED: Labetalol IV 5 MG/ML 20 ml VIAL IV PUSH ONE ×2 (08:23→09:20)
[2022-02-02 15:49] LABS: TSH Ultra Thyroid Stim Horm 2.71 mcIU/mL (0.34-5.60)
[2022-02-02] MEDS ORDERED: Al Hydrox/Mg Hydrox/Simet LIQ 30 ML UDC PO PRN (15:54)
[2022-02-03] MEDS: Albuterol HFA INHALER 8 gm MDI INH PRN ×3 (05:42→21:53)
[2022-02-03 09:53] LABS: HDL Cholesterol 54.5 mg/dL
[2022-02-03] MEDS: Vitamin THERAPEUTIC TAB PO SCH (10:09)
[2022-02-04] MEDS: Vitamin THERAPEUTIC TAB PO SCH (09:42)
[2022-02-05] MEDS: Vitamin THERAPEUTIC TAB PO SCH (08:38)
[2022-02-05 08:59] VITALS: BP 106/51
[2022-02-05] MEDS: Albuterol HFA INHALER 8 gm MDI INH PRN (17:02)
== END 2022-02-05 18:15 | disposition home or self-care (01) | DRG 885 ==
LOC: ED 03:26 → BSU 10:38
PROVIDERS: ADMIT Psychiatry & Neurology Psychiatry; ATTEND Psychiatry & Neurology Psychiatry